=== PATIENT | male | born 1945 | race Caucasian/White ===

== ENCOUNTER 2024-03-03 16:17 | Inpatient (IN) | payer MEDICARE, OTHER, SELFPAY ==
[2024-03-03] VITALS (7 sets, daily range): BP systolic 103–134; BP diastolic 65–78; BMI 27.2; BMI 26.4
--- NOTE | 2024-03-03 11:17 | ED.GENMED ---
History of Present Illness
<Bette Ku PA-C - Last Filed: 03/03/24 18:26>
General
Chief Complaint: Breathing Problem
Source: patient
Exam Limitations: none
Time Seen by Provider: 03/03/24 11:02
Nursing documentation reviewed up to this point in time: agreed with
History of Present Illness
History of Present Illness:
Patient is 71-year-old male with history atrial fibrillation on Xarelto, diabetes presenting to the emergency department from urgent care for evaluation of shortness of breath and cough. Patient states that about 3 days ago he started to have a
productive cough with blood-tinged sputum. Patient reports associated shortness of breath and lower extremity swelling. In addition�patient states that he feels generally weak over the past few days patient denies any chest pain, fevers, chills,
abdominal pain. Patient denies any hematuria, melena, hematochezia.
Patient was seen in urgent care today where he had a chest x-ray which showed abnormal finding and was referred to the emergency department for further imaging and lab studies.
Patient denies any recent travel or recent surgery. Patient takes Xarelto.
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
Past History
<Bette Ku PA-C - Last Filed: 03/03/24 18:26>
Past History
ED Past Medical History: Arrthythmia, NIDDM, Psychiatric, Other (BPH s/P TURP, hypospadias, inguinal hernia repair and umbilical hernia repair cholecystectomy, septoplasty, tonsillectomy, paroxysmal atrial fib) and Other (sleep apnea)
ED Past Surgical History: Other (aug 05 hernia repair, november 03 umbilical hernia, october 31 choley, 89 septoplasty ear surgery as a 7yr old, TONSILS AGE 22)
Social History
Tobacco: Non-smoker
Alcohol: None
Drug: None
Personal: Single
Living: other
Family History
Family History: Other (Father with prostate cancer)
Review of Systems
<Bette Ku PA-C - Last Filed: 03/03/24 18:26>
Review of Systems
Allergies reviewed?: Yes
All Other Systems: ROS reviewed and negative except as documented in HPI and ROS
Phy Exam
<Bette Ku PA-C - Last Filed: 03/03/24 18:26>
Physical Exam
Physical Exam:
Vitals: Patient's vital signs are stable. Afebrile
General: Patient is well appearing, no acute distress. Nontoxic-appearing
Skin: Warm and dry, no rashes or lesions
Head: Normocephalic, atraumatic
Eyes: Sclera nonicteric. EOMs intact. No nystagmus.
Throat: Protecting airway
Neck: Normal ROM, no cervical spine tenderness, no meningismus
Cardiac: Regular rate and rhythm, no murmurs.
Pulm: Bibasilar crackles. No evidence of respiratory stress. Oxygen saturation 96 on room air.
Abdomen: Abdomen soft. No abdominal tenderness.
Extremities: 2+ pitting edema bilateral lower extremities. Palpable DP pulses bilaterally.
Neuro: AAOx3. CN II-XII intact. No focal neurologic deficits.
Psychiatric: Normal affect.
Scores
<Bette Ku PA-C - Last Filed: 03/03/24 18:26>
Heart Failure Risk
Heart Failure Risk Score: Yes
History of Stroke or TIA: No
History of intubation for respiratory distress: No
Heart rate on ED arrival >/= 110: No
SaO2 <90% on arrival on room air: No
HR >/=110 during 3min walk test (or too ill to perform test): No
ECG has acute ischemic changes: No
Urea >/=12mmol/L (BUN 33.6mg/dL): No
Serum CO2>/=35mmol/L: No
Troponin I or T elevated to RI Level (0.4mg/dL): No
NT-proBNP >/=5,000ng/L (5,000pg/ml): Yes
HF Risk Score: 1
Admission Status: MEDIUM RISK 5.1% Consider observation or discharge to home with homecare & f/u visit to PCP/[facility] Supervisor, or SNF for treatment
<Angélica Joaquin DO - Last Filed: 03/04/24 09:08>
Heart Failure Risk
HF Risk Score: 1
Admission Status: MEDIUM RISK 5.1% Consider observation or discharge to home with homecare & f/u visit to PCP/[facility] Supervisor, or SNF for treatment
Course
<Bette Ku PA-C - Last Filed: 03/03/24 18:26>
Orders/Labs/Results
Orders:
Orders
03/03/24 Breakfast
2200 calorie (18 carb) Diabetic
At Your Request: Limited Participation
Diabetic Diet: Sodium, 2 Gram
03/03/24 11:17
Electrocardiogram (*1) Urgent
Reason for Study: Shortness of Breath
EKG- Treatment ONCE
03/03/24 11:50
Complete Blood Count/With Diff Urgent
Comprehensive Metabolic Panel Urgent
NT-proBNP Urgent
Troponin I Urgent
03/03/24 11:54
CT Chest Pe Study Urgent
Comment:
Reason For Exam: SOB, hemoptysis
03/03/24 13:27
Furosemide [Lasix] 40 mg IV NOW STA
03/03/24 15:42
Admit/Transfer Patient As Directed
Co-Sign Provider:
Level of Care: Inpatient admission
Assign to:: Telemetry
Physician / Group: Hospitalist
Diagnosis: Heart failure
Reason for Telemetry: Subacute Heart Failure
Date to Stop Telemetry: 03/05/24
Time to Stop Telemetry: 11:00
Reason for Hospitalization: Heart failure, elevated troponin, abnormal ECG
Expected length of stay greater than two midnights?: Yes
ELOS- Estimated Length of Stay in days: 5
I certify the patient meets the requirements for IP care: Yes
03/03/24 16:00
Code Status As Directed
Resuscitation Status: Full Code
03/03/24 17:15
Echo 2D MMode Color/Doppler Routine
Reason for Study: heart failure
CARDIOLOGY CONSULT Routine
Consulting Provider: Joshua Phoenix
Was physician already notified: Yes
Reason for consult: Heart failure and elevated troponin
HF DIETARY CONSULT Routine
HF EDUCATOR CONSULT Routine
Comment:
Activity As Directed
Activity Level: With Assistance
Intake/ Output As Directed
Frequency: Per unit guidelines
Patient Education As Directed
Type: CHF folder
Comment: give on admission. Document in Interdisciplinary Education record
Pneumatic Compression Sleeves As Directed
Type: Knee high
Sleep Apnea Assessment by RN As Directed
Comment:
Physician Instructions:
Vital Signs As Directed
Frequency: Other
Additional Instructions:: Q12 or per unit guidelines if more frequent.
Weight As Directed
Frequency: Daily
Type of Scale: Standing Scale
Comment: Daily morning weight. If unable to stand, use balanced bed scale.
Weight As Directed
Frequency: Once
Type of Scale: Standing Scale
Comment: Upon Admission. If unable to stand, use balanced bed scale.
Pulse Ox/cont/shift [RESP] Routine
Quantity: 1
Special Instructions: Daily pulse oximetry at rest. If greater than 92% at rest also obtain pulse oximetry
while ambulating as tolerated.
Pt Eval And Treat Routine
Treatment: eval gait
Activity Level: With Assistance
US Peripheral Arterial [US Periph Art LOWER Ext w AZIZA] Routine
Comment:
Reason For Exam: cold swollen legs
DX Deep Vein Thrombosis Video Routine
03/03/24 18:34
Calcitonin [S] Routine
Procalcitonin Routine
PCT Algorithmm Indication: Respiratory
Troponin I Q6H
Comment: at admission & every 6 hours x 2 (3 total), ECG to be done with each level
03/03/24 22:00
Finasteride [Proscar] 5 mg PO HS
Furosemide [Lasix] 40 mg IV BID AT 0800,1600
Methenamine Hippurate [Hiprex] 1 gram PO HS
Rivaroxaban [Xarelto] 20 mg PO HS
03/03/24 23:30
Troponin I Q6H
Comment: at admission & every 6 hours x 2 (3 total), ECG to be done with each level
03/04/24 05:19
Basic Metabolic Panel IN AM
Cardiovascular Evaluation IN AM
Complete Blood Count/No Diff IN AM
Troponin I Q6H
Comment: at admission & every 6 hours x 2 (3 total), ECG to be done with each level
03/05/24 06:00
Basic Metabolic Panel IN AM
03/05/24 11:00
DC Protocol for Telemetry ONCE
03/06/24 06:00
Basic Metabolic Panel IN AM
Abnormal Lab Results
03/03/24
11:50
RBC 4.16 L 10^6/uL
(4.70-6.10)
Hct 38.0 L %
(39.0-52.0)
MCH 31.3 H pg
(27.0-31.0)
RDW 15.0 H %
(11.5-14.5)
Plt Count 124 L 10^3/uL
(130-400)
MPV 12.6 H fL
(7.4-10.4)
Abs Immat Gran (auto) 0.1 H 10^3/uL
(0-0.05)
Absolute Neuts (auto) 7.4 H 10^3/uL
(1.4-6.5)
Absolute Lymphs (auto) 0.9 L 10^3/uL
(1.2-3.4)
Absolute Monos (auto) 1.4 H 10^3/uL
(0.1-0.6)
Immature Gran % 0.6 H %
(0-0.5)
Neutrophils % 75.3 H %
(42.2-75.2)
Lymphocytes % 9.5 L %
(20.5-51.1)
Monocytes % 14.0 H %
(1.7-9.3)
Glucose 122 H mg/dl
(70-99)
Total Bilirubin 2.5 H mg/dl
(0.2-1.3)
Troponin I 0.041 H* ng/ml
03/03/24 11:50
03/03/24 11:50
Vital Signs
Initial and Last Documented VS:
Initial Vital Signs
Temp Pulse Resp BP Pulse Ox
98.4 F 84 18 131/72 96
03/03/24 10:53 03/03/24 10:53 03/03/24 10:53 03/03/24 10:53 03/03/24 10:53
Last Documented Vital Signs
Temp Pulse Resp BP Pulse Ox
98 F 71 16 113/57 96
03/04/24 07:00 03/04/24 07:34 03/04/24 07:00 03/04/24 07:34 03/04/24 07:00
<Angélica Joaqiun DO - Last Filed: 03/04/24 09:08>
Orders/Labs/Results
Orders:
Orders
03/03/24 Breakfast
2200 calorie (18 carb) Diabetic
At Your Request: Limited Participation
Diabetic Diet: Sodium, 2 Gram
07/06/24 11:17
Electrocardiogram (*1) Urgent
Reason for Study: Shortness of Breath
EKG- Treatment ONCE
03/03/24 11:50
Complete Blood Count/With Diff Urgent
Comprehensive Metabolic Panel Urgent
NT-proBNP Urgent
Troponin I Urgent
03/03/24 11:54
CT Chest Pe Study Urgent
Comment:
Reason For Exam: SOB, hemoptysis
03/03/24 13:27
Furosemide [Lasix] 40 mg IV NOW STA
03/03/24 15:42
Admit/Transfer Patient As Directed
Co-Sign Provider:
Level of Care: Inpatient admission
Assign to:: Telemetry
Physician / Group: Hospitalist
Diagnosis: Heart failure
Reason for Telemetry: Subacute Heart Failure
Date to Stop Telemetry: 03/05/24
Time to Stop Telemetry: 11:00
Reason for Hospitalization: Heart failure, elevated troponin, abnormal ECG
Expected length of stay greater than two midnights?: Yes
ELOS- Estimated Length of Stay in days: 5
I certify the patient meets the requirements for IP care: Yes
03/03/24 16:00
Code Status As Directed
Resuscitation Status: Full Code
03/03/24 17:15
Echo 2D MMode Color/Doppler Routine
Reason for Study: heart failure
CARDIOLOGY CONSULT Routine
Consulting Provider: Joshua Phoenix
Was physician already notified: Yes
Reason for consult: Heart failure and elevated troponin
HF DIETARY CONSULT Routine
HF EDUCATOR CONSULT Routine
Comment:
Activity As Directed
Activity Level: With Assistance
Intake/ Output As Directed
Frequency: Per unit guidelines
Patient Education As Directed
Type: CHF folder
Comment: give on admission. Document in Interdisciplinary Education record
Pneumatic Compression Sleeves As Directed
Type: Knee high
Sleep Apnea Assessment by RN As Directed
Comment:
Physician Instructions:
Vital Signs As Directed
Frequency: Other
Additional Instructions:: Q12 or per unit guidelines if more frequent.
Weight As Directed
Frequency: Daily
Type of Scale: Standing Scale
Comment: Daily morning weight. If unable to stand, use balanced bed scale.
Weight As Directed
Frequency: Once
Type of Scale: Standing Scale
Comment: Upon Admission. If unable to stand, use balanced bed scale.
Pulse Ox/cont/shift [RESP] Routine
Quantity: 1
Special Instructions: Daily pulse oximetry at rest. If greater than 92% at rest also obtain pulse oximetry
while ambulating as tolerated.
Pt Eval And Treat Routine
Treatment: eval gait
Activity Level: With Assistance
US Peripheral Arterial [US Periph Art LOWER Ext w AZIZA] Routine
Comment:
Reason For Exam: cold swollen legs
DX Deep Vein Thrombosis Video Routine
03/03/24 18:34
Calcitonin [S] Routine
Procalcitonin Routine
PCT Algorithmm Indication: Respiratory
Troponin I Q6H
Comment: at admission & every 6 hours x 2 (3 total), ECG to be done with each level
03/03/24 22:00
Finasteride [Proscar] 5 mg PO HS
Furosemide [Lasix] 40 mg IV BID AT 0800,1600
Methenamine Hippurate [Hiprex] 1 gram PO HS
Rivaroxaban [Xarelto] 20 mg PO HS
03/03/24 23:30
Troponin I Q6H
Comment: at admission & every 6 hours x 2 (3 total), ECG to be done with each level
03/04/24 05:19
Basic Metabolic Panel IN AM
Cardiovascular Evaluation IN AM
Complete Blood Count/No Diff IN AM
Troponin I Q6H
Comment: at admission & every 6 hours x 2 (3 total), ECG to be done with each level
03/05/24 06:00
Basic Metabolic Panel IN AM
03/05/24 11:00
DC Protocol for Telemetry ONCE
03/06/24 06:00
Basic Metabolic Panel IN AM
Abnormal Lab Results
03/03/24
11:50
RBC 4.16 L 10^6/uL
(4.70-6.10)
Hct 38.0 L %
(39.0-52.0)
MCH 31.3 H pg
(27.0-31.0)
RDW 15.0 H %
(11.5-14.5)
Plt Count 124 L 10^3/uL
(130-400)
MPV 12.6 H fL
(7.4-10.4)
Abs Immat Gran (auto) 0.1 H 10^3/uL
(0-0.05)
Absolute Neuts (auto) 7.4 H 10^3/uL
(1.4-6.5)
Absolute Lymphs (auto) 0.9 L 10^3/uL
(1.2-3.4)
Absolute Monos (auto) 1.4 H 10^3/uL
(0.1-0.6)
Immature Gran % 0.6 H %
(0-0.5)
Neutrophils % 75.3 H %
(42.2-75.2)
Lymphocytes % 9.5 L %
(20.5-51.1)
Monocytes % 14.0 H %
(1.7-9.3)
Glucose 122 H mg/dl
(70-99)
Total Bilirubin 2.5 H mg/dl
(0.2-1.3)
Troponin I 0.041 H* ng/ml
03/03/24 11:50
03/03/24 11:50
Vital Signs
Initial and Last Documented VS:
Initial Vital Signs
Temp Pulse Resp BP Pulse Ox
98.4 F 84 18 131/72 96
03/03/24 10:53 03/03/24 10:53 03/03/24 10:53 03/03/24 10:53 03/03/24 10:53
Last Documented Vital Signs
Temp Pulse Resp BP Pulse Ox
98 F 71 16 113/57 96
03/04/24 07:00 03/04/24 07:34 03/04/24 07:00 03/04/24 07:34 03/04/24 07:00
<Bette Ku PA-C - Last Filed: 03/03/24 18:26>
MDM/Problems Addressed
Differential Diagnosis Includes:
Not limited to: CHF, venous stasis, bronchitis, atrial fibrillation, pneumonia, PE, ACS
MDM/Problems Addressed:
Patient is a 79-year-old male with history atrial fibrillation on Xarelto presenting from urgent care for 3 days of dyspnea on exertion, cough with blood-tinged sputum, and lower extremity edema. Follows with Dr. Parekh as cardiology. Chest x-ray
performed at urgent care shows signs of pulmonary edema. No known history of heart failure. Patient's vital signs are stable on arrival, he is afebrile and saturating 96% oxygen on room air. Physical exam as above. Patient is nontoxic, in no
apparent distress. Patient is in atrial fibrillation with a controlled rate. Patient is anticoagulated on Xarelto. Lung exam shows bibasilar crackles. Patient has 2+ pitting edema bilateral lower extremities with palpable pulses bilaterally.
Most suspicious of new onset acute heart failure. Given history of blood-tinged sputum and abnormal chest x-ray�will check CTA chest to rule out pulmonary embolism/other acute abnormalities. Basic labs were checked which shows stable hemoglobin,
no other clinically significant abnormalities on chemistry panel. Troponin is mildly elevated to 0.041 and proBNP elevated to 9220. Again�high suspicion for CHF. Will plan for likely admission for diuresis. CTA chest pending.
CTA chest reviewed. Reports shows no evidence of pulmonary embolism although bilateral small pleural effusions and potential opacities suggesting questionable pneumonia. Patient has no infectious symptoms, is afebrile with no leukocytosis. Low
suspicion for pneumonia at this time and symptoms likely related to acute CHF. Will hold off on antibiotics for now. Will give 40 mg IV Lasix. Patient will be admitted to hospitalist for new onset CHF and diuresis. Likely will require echo
during this admission and cardiology consult. Patient accepted to hospitalist service. Discussed with patient.
Chronic conditions affecting care:
Atrial fibrillation on Xarelto
Acute Exacerbation and/or Progression of Chronic Illness:
Acute CHF exacerbation
<Bette Ku PA-C - Last Filed: 03/03/24 18:26>
*Radiology
Radiology exam reviewed: radiology read reviewed
*Pulse Oximetry
Patient hypoxic: no
*EKG
Interpreted by ED Provider?: Yes
EKG Intrepretation Date: 03/03/24
Interpretation: abnormal
Comparison EKG: changes noted
Heart Rate: 64
Rate: normal
Rhythm: a-fib
Ischemia: non-specific ST changes
*Credit Report Checker Interpretation
Rate: normal
Interpretation: abnormal
Heart Rate: 68
Rhythm: a-fib
*Critical Care Note
Total Time (30-74mins, 75-104mins- exclusive of procedures): Not Applicable
Data Reviewed
Review of Other/Old Records Reveals: Records (Urgent care report) and Radiology Studies (Chest x-ray performed outpatient today)
Source: previous radiology exam
<Bette Ku PA-C - Last Filed: 03/03/24 18:26>
Patient Management
Discussion with other providers: Hospitalist
Escalation/DeEscalation of care consider admission/obs:
Admission for diuresis, cardiology consult.
ED Attending Note
<Bette Ku PA-C - Last Filed: 03/03/24 18:26>
-
Portions of this chart may have been created with voice recognition software.� Occasional wrong word or��sound alike� substitutions may have occurred due to the inherent limitations of voice recognition software.
<Angélica Joaquin DO - Last Filed: 03/04/24 09:08>
ED Attending Note
Patient seen and examined by attending physician: Yes
I performed the substantive portion of visit, reviewed & personally made and approve the management plan that is documented in note by myself or TAD.: Yes
I performed a history and physical exam of patient and discussed management with resident, I reviewed resident's note and agree with documented findings and plan of care.: Yes
ED Attending Note:
Patient seen and examined at bedside, 79-year-old male with history of atrial fibrillation on Xarelto presenting to the emergency department for 3 days of cough and difficulty breathing. Also notes lower extremity edema, which is acute on chronic.
He went to urgent care prior to arrival, notes that he is also having some blood-tinged mucus production. Subsequently sent to the emergency department. Denies any known history of CHF. He had chest x-ray at urgent care which showed some
pulmonary edema. Vital signs on arrival within normal limits.
On exam, patient in no acute respiratory distress. However, on pulmonary exam, crackles at bilateral bases. Patient also with pitting edema to lower extremities. Chest x-ray reviewed, pulmonary edema. Ultimately suspect new onset CHF. Lower
suspicion for PE given anticoagulation status, however given production of blood-tinged mucus, will obtain CT chest for rule out additional pathology. Patient had EKG completed, A-fib with right bundle branch block, relatively unchanged from prior.
Patient does have slight bump in troponin, however denies any chest pain. Low suspicion for ACS. Plan for admission for diuresis, echo, cardiac consultation.
Discharge Plan
Departure
Patient Disposition: Admit
Date of Disposition: 03/03/24
Time of Disposition: 13:28
Presentation/result/management discussed w/ accepting MD/DO: Hospitalist
Discharge Problem:
Acute CHF (congestive heart failure)
Interventions
Interventions:
*Risk Screen - Suicide Last Done: 03/03/24 11:35
*General Assessment Last Done: 03/03/24 11:35
*Neglect/Abuse Screening Last Done: 03/03/24 11:35
ED- Fall Risk Assessment Last Done: 03/03/24 11:36
*ED COVID-19 Vaccine History Last Done: 03/03/24 11:35
*Nursing Disposition Last Done: 03/03/24 18:01
ED- Cardiac Assessment Last Done: 03/03/24 11:38
ED- Pulmonary Assessment Last Done: 03/03/24 11:36
Discharge Date and Time
Discharge Date/Time: 03/03/24 18:01
[2024-03-03 12:19] LABS: % Basophils 0.4 % (0-2); % Eosinophils 0.2 % (0-6); % Immature Granulocytes 0.6 % (0-0.5); % Lymphocytes 9.5 % (20.5-51.1); % Neutrophils 75.3 % (42.2-75.2); Absolute Immature Granulocytes 0.1 10^3/uL (0-0.05); Absolute Lymphocytes 0.9 10^3/uL (1.2-3.4); Absolute Monocytes 1.4 10^3/uL (0.1-0.6); Absolute Neutrophils 7.4 10^3/uL (1.4-6.5); Mean Corp Hgb Conc. 34.2 g/dL (33.0-37.0); Mean Corpuscular Hgb 31.3 pg (27.0-31.0); Mean Corpuscular Volume 91.3 fL (80.0-94.0); Mean Platelet Volume 12.6 fL (7.4-10.4); Nucleated Red Blood Cells % 0 % (-); Platelet Count 124 10^3/uL (130-400); Red Blood Cell Count 4.16 10^6/uL (4.70-6.10); White Blood Cell Count 9.8 10^3/uL (4.8-10.8)
[2024-03-03 12:20] LABS: ALT (SGPT) 16 U/L (0-50); AST (SGOT) 23 U/L (17-59); Alkaline Phosphatase 73 U/L (38-126); Blood Urea Nitrogen 16 mg/dl (9-20); Calcium 9.1 mg/dl (8.4-10.2); Carbon Dioxide 22 mmol/L (22-30); Chloride 105 mmol/L (98-107); Estimated Creatinine Clearance 88 ml/min; Glucose 122 mg/dl (70-99); Sodium 136 mmol/L (135-145); Total Bilirubin 2.5 mg/dl (0.2-1.3); Total Protein 6.4 g/dl (6.3-8.2); eGFR > 60.00
[2024-03-03 12:29] LABS: NT-proBNP 9220 pg/ml; Troponin I 0.041 ng/ml
[2024-03-03] MEDS: LASIX 40 MG IV ×2 (14:23→22:43)
--- NOTE | 2024-03-03 15:13 | HPS.HSE ---
Family Physician
-
Family Physician: Tahir Gallagher
Chief Complaint
-
Coughing blood
History of Present Illness
71-year-old man with history of atrial fibrillation (on Xarelto), diabetes (not on insulin) comes in with shortness of breath and cough. 3 days ago he started to have a productive cough with blood-tinged sputum, associated shortness of breath and
lower extremity swelling. In addition he feels generally weak over the past few days. He denies any chest pain, fevers, chills, abdominal pain, hematuria, melena, hematochezia. He was seen in urgent care today. He had a chest x-ray which showed
abnormal findings. No h/o recent travel or recent surgery. Patient takes Xarelto. 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 At the time of my exam he was upset because he was incontinent of urine. He could not remember his
medications.
Medical History
Past Medical History
Past Medical History: Reports Other
Additional Past Medical History:
Arrthythmia, paroxysmal afib
NIDDM,
BPH s/P TURP,
hypospadias,
inguinal hernia repair
umbilical hernia repair
cholecystectomy,
septoplasty,
tonsillectomy,
sleep apnea
Glaucoma
History of CVA (cerebrovascular accident)
Right bundle branch block
Lymphedema
Chronic UTI
Past Surgical History: Reports Other
Additional Past Surgical History:
See above
Social History
Tobacco: Non-smoker
Alcohol: None
Drug: None
Personal: Partner
Living: With Family
Family History
Family History: Not pertinent
Allergies / Home Medications
Allergies reflects when Allergies were last updated in [facility].
Home Medications with original date entered in [facility]
Allergy/Medication List:
Allergies
Allergy/AdvReac Type Severity Reaction Status Date / Time
Penicillins Allergy Swelling Verified 03/03/24 10:54
TREES AND POLLEN Allergy SNEEZING Uncoded 03/03/24 10:54
Home Medications
metformin 500 mg tablet 500 mg PO HS Hyperglycemia 07/08/21
finasteride 5 mg tablet 5 mg PO HS 03/03/24
methenamine hippurate 1 gram tablet 1 g PO HS 03/03/24
rivaroxaban 20 mg tablet (Xarelto) 20 mg PO HS 03/03/24
Review of Systems
-
History Source: Patient
A 12 point ROS was completed and negative except as noted: Yes
Physical Exam
Vital Signs
Vital Signs
Temp Pulse Resp BP Pulse Ox
98.4 F 70 21 134/74 93
03/03/24 10:53 03/03/24 11:49 03/03/24 11:49 03/03/24 14:23 03/03/24 11:49
Physical Exam
General: Well Developed, Well Nourished and Appears in Distress
HEENT: NormoCephalic, No Ptosis, Nose Appears Normal and Ears Appear Normal
Respiratory: Clear
Cardiac: S1/S2, Irregular Rhythm and Peripheral Edema
GI: Soft, Non Tender and Non Distended
Musculoskeletal: No Clubbing, Edema, Left Lower Extremity and Edema, Right Lower Extremity
Skin: Warm and Dry
Neuro: Awake, Alert and Oriented
Psych: Agitated
Laboratory Results
-
03/03/24 11:50
03/03/24 11:50
Laboratory Results
Total Bilirubin 2.5 mg/dl (0.2-1.3) H 03/03/24 11:50
AST 23 U/L (17-59) 03/03/24 11:50
ALT 16 U/L (0-50) 03/03/24 11:50
Alkaline Phosphatase 73 U/L (38-126) 03/03/24 11:50
Troponin I 0.041 ng/ml H* 03/03/24 11:50
Data Reviewed
-
Lab Data: Labs Reviewed by me
Impression/Plan
-
IMPRESSION:
79 man with increased peripheral edema, new shortness of breath. Significant findings:
CT:
1. No CTA evidence for an acute pulmonary thromboembolism.
2. Moderate right and small left pleural effusions.
3. Left lower lobe peribronchial thickening and airspace opacities most suspicious for pneumonia. Imaging follow-up to resolution is recommended
4. Cardiomegaly.
Labs:
Platelets 124 (had been 138)
Troponin 0.041 (ULN 0.034)
BNP
ECG: inferior infarct
Last echo in 2021:
Mildly dilated left ventricular size. Severely reduced systolic function. LV
ejection fraction is 35-40% by visual assessment. Global hypokinesis. Normal
left ventricular wall thickness.
Enlarged left atrium.
Mild mitral regurgitation
Mild tricuspid regurgitation with mild pulmonary hypertension.
PLAN:
1. Pleural effusions - probable acute CHF, complicating chronic CHF as described above, BNP
Diurese with lasix (keep an eye on BP)
GILBERTO - cycle troponins (first is 0.041)
Telemetry
R/O pneumonia with pro-nick
Cardiology consult ([facility])
2. Abnormal ECG with changes. No chest pain. ECG today:
ATRIAL FIBRILLATION
LEFT AXIS DEVIATION
RIGHT BUNDLE BRANCH BLOCK
INFERIOR INFARCT , AGE UNDETERMINED
WHEN COMPARED WITH ECG OF 11-APR-2021 07:05,
INFERIOR INFARCT IS NOW PRESENT
T WAVE INVERSION NOW EVIDENT IN ANTERIOR LEADS
Cycle troponins
Telemetry
Cardiology consult ([facility])
3. Low platelets, on xarelto, with blood tinged sputum. H/H 13.0/38.0 (this is near baseline)
Check H/H daily
Hold Xarelto if sputum redness increases or H/H drops
Avoid heparin
4. Urinary incontinence s/p tURP
Nursing care
Consider condom cath while in active diuresis
Continue finasteride
5. Severe venous stasis on legs bilaterally
Elevate legs above heart as tolerated
Check bilateral pedal pulses
6. Diabetes
Supplemental insulin as needed per protocol
7. Chronic UTIs - continue Methenamine
Code: Full
VCD for DVTp
--- NOTE | 2024-03-03 17:02 | CON.CAR ---
Consultation
Consultation Request
Date/Time Consultation Requested: 03/03/2024 at 1600
Date/Time Consultation Performed: 03/03/2024 at 1700
Requesting Provider: Dr. Lambert Case
Performing Provider: Joshua Phoenix MD
Reason for Consultation: CHF
Medical History
-
Chief Complaint: CHF
History of Present Illness:
Patient with permanent atrial fibrillation and nonischemic cardiomyopathy with moderate mitral regurgitation, very reluctant to accept guideline directed medical therapy but does take Xarelto to prevent additional strokes, now with 3 days of
shortness of breath with orthopnea and PND. He has had hemoptysis and presented for evaluation, had elevated proBNP and bilateral pleural effusions with evidence of heart failure by CT scan with pulmonary embolism protocol. Has a history of
hematuria remotely but not recently. Last seen in our office in August of this year. He has longstanding edema, now worse, with lower extremity wound appointment scheduled with Dr. Marshall to discuss Watchman
Past Medical History
Past Medical History: Arrhythmias (Persistent/permanent atrial fibrillation, right bundle branch block, n), CHF (Nonischemic cardiomyopathy by catheterization in 2016, most recent EF 35-40%), CVA (Right paramedian and posterior frontal stroke 2020,
old left frontal stroke, possible parietal stroke, possible cerebellar stroke), HTN, Hypercholesterolemia, NIDDM, Valvular Disease (Moderate mitral regurgitation) and Other (Noncompliance with medications, history of hematuria on Xarelto, renal
calculi, obstructive sleep apnea, lymphedema)
Past Surgical History: Cholecystectomy, Urological (TURP) and Other (Tonsillectomy, ear surgery, herniorrhaphy, septoplasty, cataracts, laser renal lithotripsy and stents, hypospadias)
Social History
Tobacco: Non-Smoker
Alcohol: None
Personal: Partner
Living: With Family
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
Family History
Family History: Reviewed & Not Pertinent
Allergies / Home Medications
Allergy/AdvReac Type Severity Reaction Status Date / Time
Penicillins Allergy Swelling Verified 03/03/24 10:54
TREES AND POLLEN Allergy SNEEZING Uncoded 03/03/24 10:54
�Medication �Instructions �Recorded �Confirmed �Type
metformin 500 mg tablet 500 mg PO HS Hyperglycemia 07/08/21 03/03/24 History
finasteride 5 mg tablet 5 mg PO HS 03/03/24 03/03/24 History
methenamine hippurate 1 gram tablet 1 g PO HS 03/03/24 03/03/24 History
rivaroxaban 20 mg tablet (Xarelto) 20 mg PO HS 03/03/24 03/03/24 History
Review of Systems
-
All other systems: Negative unless noted
Physical Exam
Vital Signs
Temp Pulse Resp BP Pulse Ox
36.9 C 87 30 134/74 98
03/03/24 10:53 03/03/24 14:30 03/03/24 14:30 03/03/24 14:23 03/03/24 14:30
Lab Results
03/03/24 11:50
03/03/24 11:50
Troponin I 0.041 ng/ml H* 03/03/24 11:50
Wfm-D-Qezybfixgtk Pept 9220 pg/ml 03/03/24 11:50
Physical Exam
General: No Apparent Distress (Mildly tachypneic, slender)
HEENT: Normocephalic
Respiratory: Other (Diminished breath sounds right greater than left, with rales)
Cardiac: Irregular Rhythm, Murmur (Relatively soft MR murmur) and JVD (Modestly elevated)
GI: Non Tender and Non Distended
Musculoskeletal: Edema (3+ edema with venous stasis changes, wound on lower left conde with Telfa pad)
Skin: Warm and Dry
Neuro: AO x 3
Psych: Calm
Impression / Plan
-
Impression:
Acute on chronic HFrEF
Permanent atrial fibrillation
Moderate mitral regurgitation
Right bundle branch block with left anterior fascicular block
History of stroke, likely cardioembolic
Hypertension
Hyperlipidemia
History of noncompliance
Type 2 diabetes
History of renal calculi/hematuria
Obstructive sleep apnea
Lymphedema
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
Echo 04/2023: Global hypokinesis, EF 35-40% with restrictive filling, normal RV, dilated left atrium (severe) normal right atrium, moderate mitral regurgitation, aortic sclerosis, mild tricuspid regurgitation, pulmonary artery systolic pressure 45-48
mmHg, sinus of Valsalva is 5.3 cm
Cardiac catheterization performed elsewhere 2017: Reportedly without obstructive CAD
Plan:
He presents with what is probably acute on chronic HFrEF with moderate mitral regurgitation and last known ejection fraction of 35 to 40%.
He is relatively bradycardic, so addition of carvedilol is problematic. In addition he has been reluctant to comply with GDMT. He now states that he wants to avoid hospitalization, so hopefully he will now accept GDMT. Will begin Entresto
today and hopefully add spironolactone and SGLT2 inhibitor prior to discharge. Will need to discuss further whether he is an SGLT2 candidate given urologic history.
Continue IV Lasix, continue Xarelto.
Will recheck echocardiogram.
At present, I am not sure that Watchman would be reimbursed given that he is tolerating Xarelto.
Data Reviewed
-
EKG: Tracing Personally Visualized and interpreted (Atrial fibrillation, relatively slow ventricular response, right bundle branch block with left anterior fascicular block, poor R wave progression possible inferior OR)
CT Scan: Image Personally Visualized and interpreted (03/03/2024 CTA negative for pulmonary embolism, moderate right and small left pleural effusion, possible left lower lobe peribronchial pneumonia, cardiomegaly)
Medical Tests (Nuc Med, Echo etc): Report Reviewed by me
Labs: Labs Reviewed by me (Hemoglobin 13.0, white count 9.8, platelets 124, BUN/creatinine 16 and 0.8, proBNP is 9220, initial opponent 0.041)
Old Records: Reviewed
[2024-03-03 19:07] LABS: Troponin I 0.042 ng/ml
[2024-03-03 19:15] LABS: Procalcitonin < 0.05 ng/ml (0.0-0.25)
[2024-03-03] MEDS: ENTRESTO 24 MG/26 MG 1 TAB PO (20:32)
[2024-03-03] MEDS: HIPREX 1 GRAM PO (22:39)
[2024-03-03] MEDS: XARELTO 20 MG PO (22:40)
[2024-03-03] MEDS: PROSCAR 5 MG PO (22:40)
[2024-03-03 22:50] LABS: Glucose - Point of Care 138 mg/dl (70-99)
[2024-03-04] VITALS (7 sets, daily range): BP systolic 95–115; BP diastolic 49–67; PULSE 68–77; BMI 25.6
[2024-03-04 00:02] LABS: Troponin I 0.051 ng/ml
[2024-03-04 05:31] LABS: Hematocrit 39.9 % (39.0-52.0); Hemoglobin 13.7 g/dL (13.0-18.0); Mean Corp Hgb Conc. 34.3 g/dL (33.0-37.0); Mean Corpuscular Hgb 31.1 pg (27.0-31.0); Mean Corpuscular Volume 90.5 fL (80.0-94.0); Mean Platelet Volume 12.5 fL (7.4-10.4); Platelet Count 140 10^3/uL (130-400); Red Blood Cell Count 4.41 10^6/uL (4.70-6.10); Red Cell Dist. Width 14.6 % (11.5-14.5); White Blood Cell Count 10.9 10^3/uL (4.8-10.8)
[2024-03-04 06:07] LABS: Troponin I 0.054 ng/ml
[2024-03-04 06:24] LABS: Blood Urea Nitrogen 15 mg/dl (9-20); Calcium 8.8 mg/dl (8.4-10.2); Carbon Dioxide 26 mmol/L (22-30); Chloride 101 mmol/L (98-107); Estimated Creatinine Clearance 101 ml/min; Glucose 118 mg/dl (70-99); HDL Cholesterol 42 mg/dl; LDL Cholesterol, Calculated 88 mg/dl; Potassium 3.5 mmol/L (3.5-5.1); Sodium 137 mmol/L (135-145); Total Cholesterol 140 mg/dl (50-199); Triglyceride 52 mg/dl (10-149); Very Low Density Lipoprotein 10 mg/dl (0-30); eGFR > 60.00
[2024-03-04] MEDS: LASIX 40 MG IV ×2 (07:34→16:33)
[2024-03-04] MEDS: ENTRESTO 24 MG/26 MG 1 TAB PO ×2 (07:34→19:48)
[2024-03-04 07:38] LABS: Glucose - Point of Care 114 mg/dl (70-99)
--- NOTE | 2024-03-04 08:23 | W.PN.HOSP.TC ---
Today's Communication/Plan
-
see bold
Assessment / Plan
Assessment / Plan
#Acute on chronic heart failure with reduced ejection fraction
Appreciate cardiology input, continue IV Lasix, started on Entresto
Hold spironolactone secondary to low blood pressure, potentially start tomorrow
Trend creatinine, trend daily weights
#Elevated troponin
Due to CHF
#Chronic lymphedema
Ordered Tubigrip's
#Mild leukocytosis
#Hemoptysis
Chest CT concerning for PNA - discussed w/ cards who feels like findings are due to CHF
Procalcitonin negative
Patient is afebrile, will monitor off of antibiotics
Hemoptysis is mild, continue to monitor
#Permanent atrial fibrillation
Continue Xarelto
#Moderate mitral regurgitation
#Right bundle branch block with left anterior fascicular block
#History of type 2 diabetes, now glucose intolerance
Resume home metformin, continue sliding scale insulin
#BPH
Continue finasteride
#History of stroke, likely cardioembolic
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
DVT prophylaxis�Xarelto
Full code
Total time spent to see the patient on the floor, examine the patient, review data and lab results, discuss treatment plan with patient, nursing staff around 50 minutes.
Physical Exam
General: No acute distress
HEENT: Normocephalic, Atraumatic, EOMI, MMM
Respiratory: Bibasilar crackles
Cardiac: Normal S1/S2, irregularly irregular
GI: Soft, Nontender, Nondistended, Normal Bowel Sounds
Extremities: No Clubbing, Cyanosis
Bilateral lower extremity edema noted with skin changes reflective of chronic venous stasis dermatitis
Neuro: Nonfocal/Grossly Intact
Psych: Calm, Cooperative
Derm: No Visible lesions
Anticipated Discharge: 24 - 48 hours
Subjective/Interval History
-
Date of Service: March 04, 2024
Patient reports his breathing and hemoptysis are improved. His lower extremity edema has also improved. No fever, no vomiting.
Objective Data
-
Labs:
Laboratory Results
03/04/24
05:19
WBC 10.9 H
Hgb 13.7
Hct 39.9
Plt Count 140
Sodium 137
Potassium 3.5
Chloride 101
Carbon Dioxide 26
BUN 15
Creatinine 0.7
Glucose 118 H
Calcium 8.8
Vital Signs:
Vital Signs
Temp Pulse Resp BP Pulse Ox
98 F 71 16 113/57 96
03/04/24 07:00 03/04/24 07:34 03/04/24 07:00 03/04/24 07:34 03/04/24 07:00
I&O
03/03/24 03/04/24 03/05/24
06:59 06:59 06:59
Intake Total 1050 / 1050
Balance 1050 / 1050
--- NOTE | 2024-03-04 08:26 | W.PN.CARDCBS ---
Today's Communication / Plan
-
Hold spironolactone, potentially start tomorrow
Continue IV Lasix, continue Entresto
No SGLT2 inhibitor given urologic issues
No beta-baljeet given bradycardia
Continue Xarelto
Impression / Plan
-
Impression:
Acute on chronic HFrEF
Permanent atrial fibrillation
Moderate mitral regurgitation
Right bundle branch block with left anterior fascicular block
History of stroke, likely cardioembolic
Hypertension
Hyperlipidemia
History of noncompliance
Type 2 diabetes
History of renal calculi/hematuria
Obstructive sleep apnea
Lymphedema
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
Echo 04/2023: Global hypokinesis, EF 35-40% with restrictive filling, normal RV, dilated left atrium (severe) normal right atrium, moderate mitral regurgitation, aortic sclerosis, mild tricuspid regurgitation, pulmonary artery systolic pressure 45-48
mmHg, sinus of Valsalva is 5.3 cm
Cardiac catheterization performed elsewhere 2017: Reportedly without obstructive CAD
Plan:
Volume status is improved but not yet euvolemic.
Blood pressure has been relatively low.
He is now on Entresto. Continue IV Lasix and convert to oral in 24 to 48 hours.
Given urologic issues he is a poor candidate for SGLT2 antagonists.
No beta-baljeet given relative bradycardia.
Continue Xarelto.
Hopefully can start spironolactone in 24 to 48 hours. Supplement potassium.
Unfortunately, he seemed more cooperative yesterday and seems less willing to comply with medications today, we will need to talk with his friend/business insurance agent. I stressed the importance of medication compliance in order to avoid hospitalization.
Patient for echocardiography in AM.
He thinks a Watchman would solve his problems and and does not understand CHF though I discussed this yesterday and he has no recollection. I told him given he does not have a strong contraindication to anticoagulation that it may not be feasible
to implant the device.
Progress Note - Mechanical Reliability Engineer
Subjective
Date of Service: March 04, 2024:
Patient without clear-cut hemoptysis. He says he has no breathing issues. His memory is poor and does not recall details of his symptoms, etc.
PMH/PSH/SH/FH: Reviewed
Allergies: Penicillin
Outpatient medications: Metformin 500 mg at bedtime, methenamine hippurate, rivaroxaban
Current meds: Proscar 5 mg a day, methenamine hippurate, rivaroxaban 20 mg at bedtime, furosemide 40 mg IV twice daily, insulin sliding scale, Entresto twice daily
ROS negative except as above
Weight is 90.4 kg, if accurate down 2.7 kg since yesterday, 5.6 kg since admission, pulse 50s to 70s afebrile, 113/57, sats 96% on room air, aeration of lungs is improved, JVD is okay, extremely soft apical murmur, still with lower extremity edema,
abdomen benign
Potassium is 3.5, BUN and creatinine are 15 and 0.7, hemoglobin is 13.7, troponin is 0.054 at peak
ECG today, atrial fibrillation, PVCs versus aberrant ventricular conduction, right bundle branch block, left anterior fascicular block, possible inferior MO with diffuse ST and T changes
Objective
Labs:
03/04/24 05:19
03/04/24 05:19
Labs
Hgb 13.7 g/dL (13.0-18.0) 03/04/24 05:19
Hct 39.9 % (39.0-52.0) 03/04/24 05:19
Plt Count 140 10^3/uL (130-400) 03/04/24 05:19
Sodium 137 mmol/L (135-145) 03/04/24 05:19
Potassium 3.5 mmol/L (3.5-5.1) 03/04/24 05:19
BUN 15 mg/dl (9-20) 03/04/24 05:19
Creatinine 0.7 mg/dL (0.7-1.3) 03/04/24 05:19
Glucose 118 mg/dl (70-99) H 03/04/24 05:19
Troponins
03/03/24 03/03/24 03/03/24
11:50 18:34 23:30
Troponin I 0.041 H* 0.042 H* 0.051 H*
03/04/24
05:19
Troponin I 0.054 H*
Vital Signs and I&O:
Vital Signs
Temp Pulse Resp BP Pulse Ox
36.6 C 71 16 113/57 96
03/04/24 07:00 03/04/24 07:34 03/04/24 07:00 03/04/24 07:34 03/04/24 07:00
Vital Signs
Temp Pulse Resp BP Pulse Ox
36.6 C 71 16 113/57 96
03/04/24 07:00 03/04/24 07:34 03/04/24 07:00 03/04/24 07:34 03/04/24 07:00
Intake & Output
03/02/24 03/03/24 03/04/24 03/05/24
07:59 07:59 07:59 07:59
Intake Total 1050 / 1050
Balance 1050 / 1050
Physical Exam
Physical Exam
See above
[2024-03-04] MEDS: KCL 40 MEQ PO ×2 (09:08→23:18)
[2024-03-04 09:33] LABS: Glycohemoglobin (HgbA1c) 6.2 % (4.0-5.6)
[2024-03-04 11:37] LABS: Glucose - Point of Care 133 mg/dl (70-99)
--- NOTE | 2024-03-04 16:15 | CM ---
Alert awake oriented patient who lives with his friend Nasim who lives in a 2 story home with 2 step to enter and 8 steps to bed and bathroom. He is independent in driving and in all activities of daily living.He was offered VN he declined need.He
said he will set up out pt PT by himself at ne.He said his address is [address] [place] [address].
Had Julián and [facility] VN hx / No SNF history
Pharmacy [facility]
PCP DR Gallagher
PLAN Home Declined VN
[2024-03-04 17:26] LABS: Glucose - Point of Care 137 mg/dl (70-99)
[2024-03-04 21:48] LABS: Glucose - Point of Care 190 mg/dl (70-99)
[2024-03-04] MEDS: XARELTO 20 MG PO (23:17)
[2024-03-04] MEDS: PROSCAR 5 MG PO (23:17)
[2024-03-04] MEDS: HIPREX 1 GRAM PO (23:18)
[2024-03-04] MEDS: GLUCOPHAGE 500 MG PO (23:18)
[2024-03-05 03:30] VITALS: BP 115/70
[2024-03-05 05:27] VITALS: BMI 25.5
[2024-03-05 06:20] LABS: Hematocrit 41.5 % (39.0-52.0); Hemoglobin 14.4 g/dL (13.0-18.0); Mean Corp Hgb Conc. 34.7 g/dL (33.0-37.0); Mean Corpuscular Volume 89.2 fL (80.0-94.0); Mean Platelet Volume 12.4 fL (7.4-10.4); Platelet Count 166 10^3/uL (130-400); Red Blood Cell Count 4.65 10^6/uL (4.70-6.10); Red Cell Dist. Width 14.6 % (11.5-14.5); White Blood Cell Count 11.1 10^3/uL (4.8-10.8)
[2024-03-05 06:36] LABS: Blood Urea Nitrogen 19 mg/dl (9-20); Calcium 8.9 mg/dl (8.4-10.2); Carbon Dioxide 28 mmol/L (22-30); Chloride 99 mmol/L (98-107); Estimated Creatinine Clearance 101 ml/min; Glucose 130 mg/dl (70-99); Magnesium 1.9 mg/dl (1.6-2.3); Potassium 3.8 mmol/L (3.5-5.1); Sodium 136 mmol/L (135-145); eGFR > 60.00
[2024-03-05 07:00] VITALS: BP 104/64
[2024-03-05 07:21] LABS: Glucose - Point of Care 129 mg/dl (70-99)
[2024-03-05] MEDS: KCL 10 MEQ PO ×2 (07:21→19:42)
[2024-03-05] MEDS: LASIX 40 MG IV ×2 (07:21→16:41)
[2024-03-05] MEDS: ENTRESTO 24 MG/26 MG 1 TAB PO ×2 (07:21→19:42)
[2024-03-05 07:50] VITALS: BMI 25.5
--- NOTE | 2024-03-05 09:27 | W.PN.CARDCBS ---
Today's Communication / Plan
-
Continue IV diuresis
Echo is pending
Outpatient evaluation for Watchman
Impression / Plan
-
.
Primary generation technician: Dr Parekh
Impression:
Acute on chronic HFrEF
Permanent atrial fibrillation
Moderate mitral regurgitation
Right bundle branch block with left anterior fascicular block
History of stroke, likely cardioembolic
Hypertension
Hyperlipidemia
History of noncompliance
Type 2 diabetes
History of renal calculi/hematuria
Obstructive sleep apnea
Lymphedema
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
Echo 04/2023: Global hypokinesis, EF 35-40% with restrictive filling, normal RV, dilated left atrium (severe) normal right atrium, moderate mitral regurgitation, aortic sclerosis, mild tricuspid regurgitation, pulmonary artery systolic pressure 45-48
mmHg, sinus of Valsalva is 5.3 cm
Cardiac catheterization performed elsewhere 2017: Reportedly without obstructive CAD
Plan:
Cont IV diuresis and likely change to oral lasix next 24 hrs.
Volume status continues to improve.
Blood pressure remains on the lower side. Would hold on aldactone at this time.
Entresto was added this admit. Would ask case management to assess affordability. He had been on ACEI and Coreg in the past but stopped them.
Holding off on resuming beta baljeet presently with HR on lower side.
Given urologic issues he is a poor candidate for SGLT2 antagonists.
Continue Xarelto for perm AFib. With CVA he has been recommended anticoagulation. He is in the process of being evaluated for Watchman given his recurrent hematuria after discussions with urology.
He has an appointment coming up with Dr. Marshall
Echo is pending March 05.
He was anxious during interview. Spoke with his partner Nasim via phone in the room and reviewed plan of care and need for compliance and follow-up with him.
Compliance with medications and follow-up and recommendations has been discussed.
Updated primary service.
Progress Note - Patient Care Technician Instructor
Subjective
Date of Service: March 05, 2024
Patient seen and examined. No chest pain. Breathing better. He is anxious. He cries during interview
Objective
Labs:
03/05/24 05:52
03/05/24 05:52
Labs
Hgb 14.4 g/dL (13.0-18.0) 03/05/24 05:52
Hct 41.5 % (39.0-52.0) 03/05/24 05:52
Plt Count 166 10^3/uL (130-400) 03/05/24 05:52
Sodium 136 mmol/L (135-145) 03/05/24 05:52
Potassium 3.8 mmol/L (3.5-5.1) 03/05/24 05:52
BUN 19 mg/dl (9-20) 03/05/24 05:52
Creatinine 0.7 mg/dL (0.7-1.3) 03/05/24 05:52
Glucose 130 mg/dl (70-99) H 03/05/24 05:52
Troponins
03/03/24 03/03/24 03/03/24
11:50 18:34 23:30
Troponin I 0.041 H* 0.042 H* 0.051 H*
03/04/24
05:19
Troponin I 0.054 H*
Vital Signs and I&O:
Vital Signs
Temp Pulse Resp BP Pulse Ox
97.6 F 77 17 104/64 94
03/05/24 07:00 03/05/24 07:21 03/05/24 07:00 03/05/24 07:21 03/05/24 07:00
Vital Signs
Temp Pulse Resp BP Pulse Ox
97.6 F 77 17 104/64 94
03/05/24 07:00 03/05/24 07:21 03/05/24 07:00 03/05/24 07:21 03/05/24 07:00
Intake & Output
03/03/24 03/04/24 03/05/24 03/06/24
06:59 06:59 06:59 06:59
Intake Total 1050 / 1050 1200 / 1200
Output Total 1800 / 1800
Balance 1050 / 1050 -600 / -600
Physical Exam
Physical Exam
General: No acute distress, AAOX3
Neck: Negative JVD
Heart: Irregularly irregular, Negative S3 positive S1/S2, Negative S4, No murmur
Lungs: CTA b/l, negative wheezes/rales/rhonchi
Abd: Positive BS, NT/ND, neg rebound/rigidity/guarding
Ext: Negative cyanosis/clubbing/edema
Neuro: nonfocal
[2024-03-05 12:13] LABS: Glucose - Point of Care 130 mg/dl (70-99)
--- NOTE | 2024-03-05 12:52 | W.PN.HOSP.TC ---
Today's Communication/Plan
-
see bold
Assessment / Plan
Assessment / Plan
Gen: NAD, Awake and alert, NCAT
Eyes: EOMI, PERRLA, no scleral icterus.
Neck: supple.
CV: irreg/irreg, +S1/S2, no m/r/g.
Resp: faint rales in the bases
Abd: +BS, soft, NT, ND
Skin: No rashes. 1+ B/L LE edema
Neuro: CN 2-12 intact, non-focal.
Psych: Normal mood and affect.
CTA chest:
1. No CTA evidence for an acute pulmonary thromboembolism.
2. Moderate right and small left pleural effusions.
3. Left lower lobe peribronchial thickening and airspace opacities most suspicious for pneumonia. Imaging follow-up to resolution is recommended
4. Cardiomegaly.
Acute on chronic heart failure with reduced ejection fraction:
-cont IV Lasix
-cont Entresto
-no aldactone at this time due to hypotension
-Elevated troponin is due to acute nonischemic myocardial injury
Hemoptysis:
-CTA chest above
-afebrile, procal < 0.05, unlikely findings on chest imaging related to bacterial pneumonia
-Hb normal
Other problems:
Chronic lymphedema: cont Tubigrip's
Mild leukocytosis
Permanent atrial fibrillation: continue Xarelto
Moderate mitral regurgitation
Right bundle branch block with left anterior fascicular block
DM2: cont Metformin/SSI/accuchecks
BPH: Continue finasteride
h/o CVA
h/o Cognitive impairment
FULL/Xarelto
Anticipated Discharge: Within 24 hours
Subjective/Interval History
-
Date of Service: March 05, 2024
Objective Data
-
Labs:
Laboratory Results
03/05/24
05:52
WBC 11.1 H
Hgb 14.4
Hct 41.5
Plt Count 166
Sodium 136
Potassium 3.8
Chloride 99
Carbon Dioxide 28
BUN 19
Creatinine 0.7
Glucose 130 H
Calcium 8.9
Vital Signs:
Vital Signs
Temp Pulse Resp BP Pulse Ox
97.6 F 77 17 104/64 94
03/05/24 07:00 03/05/24 07:21 03/05/24 07:00 03/05/24 07:21 03/05/24 07:00
I&O
03/04/24 03/05/24 03/06/24
06:59 06:59 06:59
Intake Total 1050 / 1050 1200 / 1200
Output Total 1800 / 1800
Balance 1050 / 1050 -600 / -600
--- NOTE | 2024-03-05 14:46 | CM ---
Patient seen at bedside. Patient states that he has a care in the parking lot and does not anticipate any further discharge needs. CM will continue to follow for discharge planning needs.
Plan; home with no needs anticipated at this time.
[2024-03-05 14:53] VITALS: BP 101/55
[2024-03-05 16:41] LABS: Glucose - Point of Care 176 mg/dl (70-99)
[2024-03-05] MEDS: GLUCOPHAGE 500 MG PO (21:08)
[2024-03-05] MEDS: XARELTO 20 MG PO (21:08)
[2024-03-05] MEDS: HIPREX 1 GRAM PO (21:09)
[2024-03-05] MEDS: PROSCAR 5 MG PO (21:09)
[2024-03-05 21:27] LABS: Glucose - Point of Care 209 mg/dl (70-99)
--- NOTE | 2024-03-05 22:10 | PTCARENOTE ---
Pt AAOx3, forgetful. C/o some hand cramps during his earlier meal which made it difficult to eat his meal independently, states that he believes he does not have this symptom at home d/t the increased amount of water he drinks at home. Pt states he
will not remember to tell the doctor about this symptom tomorrow. Pt does not c/o symptom currently.
[2024-03-05 23:46] VITALS: BP 107/63
[2024-03-06 02:11] LABS: Calcitonin <2.0 pg/mL (0.0-7.5)
[2024-03-06 06:00] VITALS: BMI 25.0
[2024-03-06 06:52] LABS: Blood Urea Nitrogen 17 mg/dl (9-20); Calcium 8.7 mg/dl (8.4-10.2); Carbon Dioxide 26 mmol/L (22-30); Chloride 99 mmol/L (98-107); Estimated Creatinine Clearance 118 ml/min; Glucose 126 mg/dl (70-99); Potassium 3.5 mmol/L (3.5-5.1); Sodium 134 mmol/L (135-145); eGFR > 60.00
[2024-03-06 07:00] VITALS: BP 92/52
[2024-03-06 07:19] LABS: Glucose - Point of Care 141 mg/dl (70-99)
[2024-03-06 07:50] VITALS: BMI 25.0
--- NOTE | 2024-03-06 08:25 | W.PN.CARDCBS ---
Today's Communication / Plan
-
Transition to oral lasix 40 mg daily.
His wt is down and similar to prior wt from late 2022.
Blood pressure remains on the lower side. Would not resume aldactone at this time.
Entresto was added this admit. Will ask case management to assess affordability. He had been on ACEI and Coreg in the past but stopped them on his own.
Holding off on resuming beta baljeet presently with HR and bp on lower side.
Continue Xarelto for perm AFib. With CVA he has been recommended anticoagulation. He is in the process of being evaluated for Watchman given his recurrent hematuria after discussions with urology.
Echo March 05., EF is slightly lower. He has declined PVI in the past and tx for afib which likely contributed to his CM. He has declined ICD in the past.
Stable from cardiac standpoint for d/c today.
Impression / Plan
-
.
Primary bread icer: Dr Parekh
Impression:
Acute on chronic HFrEF
Permanent atrial fibrillation
Moderate mitral regurgitation
Right bundle branch block with left anterior fascicular block
History of stroke, likely cardioembolic
Hypertension
Hyperlipidemia
History of noncompliance
Type 2 diabetes
History of renal calculi/hematuria
Obstructive sleep apnea
Lymphedema
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
Echo March 05 2024: Left ventricle is moderately dilated. Normal left ventricular wall thickness.
Severe global hypokinesis with possible apical akinesis. Left ventricular ejection fraction is 20-25% by Up's method of discs. Diastolic function indeterminate due to atrial fibrillation. Mild to moderate mitral regurgitation.
Severely dilated left atrium. Enlarged right ventricular size. Since echocardiogram 05/27/2023 which was reviewed, ejection fraction has decreased from 30-35% to 20-25%. Right ventricle may be dilated and hypokinetic.
Echo 04/2023: Global hypokinesis, EF 35-40% with restrictive filling, normal RV, dilated left atrium (severe) normal right atrium, moderate mitral regurgitation, aortic sclerosis, mild tricuspid regurgitation, pulmonary artery systolic pressure 45-48
mmHg, sinus of Valsalva is 5.3 cm
Cardiac catheterization performed elsewhere 2017: Reportedly without obstructive CAD
Plan:
Transition to oral lasix 40 mg daily.
His wt is down and similar to prior wt from late 2022.
Blood pressure remains on the lower side. Would not resume aldactone at this time.
Entresto was added this admit. Will ask case management to assess affordability. He had been on ACEI and Coreg in the past but stopped them on his own.
Holding off on resuming beta baljeet presently with HR and bp on lower side.
Given urologic issues he is a poor candidate for SGLT2 antagonists.
Continue Xarelto for perm AFib. With CVA he has been recommended anticoagulation. He is in the process of being evaluated for Watchman given his recurrent hematuria after discussions with urology.
He has an appointment coming up with Dr. Marshall
Echo March 05., EF is slightly lower. He has declined PVI in the past and tx for afib which likely contributed to his CM. He has declined ICD in the past.
Cont medical therapy of nonMI trop.
He was anxious during interview again today.
Spoke with his partner Nasim via phone at his request and again reviewed plan of care and need for compliance and follow-up with him.
Compliance with medications and follow-up and recommendations has been discussed.
Updated primary service.
Stable from cardiac standpoint for d/c today.
Progress Note - Automatic Head Sawyer
Subjective
Date of Service: March 06, 2024
Pt seen and examined. No complaints. No chest pain or shortness of breath.
Objective
Labs:
03/05/24 05:52
03/06/24 05:45
Labs
Hgb 14.4 g/dL (13.0-18.0) 03/05/24 05:52
Hct 41.5 % (39.0-52.0) 03/05/24 05:52
Plt Count 166 10^3/uL (130-400) 03/05/24 05:52
Sodium 134 mmol/L (135-145) L 03/06/24 05:45
Potassium 3.5 mmol/L (3.5-5.1) 03/06/24 05:45
BUN 17 mg/dl (9-20) 03/06/24 05:45
Creatinine 0.6 mg/dL (0.7-1.3) L 03/06/24 05:45
Glucose 126 mg/dl (70-99) H 03/06/24 05:45
Troponins
03/03/24 03/03/24 03/03/24
11:50 18:34 23:30
Troponin I 0.041 H* 0.042 H* 0.051 H*
03/04/24
05:19
Troponin I 0.054 H*
Vital Signs and I&O:
Vital Signs
Temp Pulse Resp BP Pulse Ox
97.6 F 69 17 92/52 95
03/06/24 07:00 03/06/24 07:00 03/06/24 07:00 03/06/24 07:00 03/06/24 07:00
Vital Signs
Temp Pulse Resp BP Pulse Ox
97.6 F 69 17 92/52 95
03/06/24 07:00 03/06/24 07:00 03/06/24 07:00 03/06/24 07:00 03/06/24 07:00
Intake & Output
03/04/24 03/05/24 03/06/24 03/07/24
06:59 06:59 06:59 06:59
Intake Total 1050 / 1050 1200 / 1200 960 / 960
Output Total 1800 / 1800 900 / 900
Balance 1050 / 1050 -600 / -600 60 / 60
Physical Exam
Physical Exam
General: No acute distress, Awake and alert
Neck: Negative JVD
Heart: Irregularly irregular, Negative S3 positive S1/S2, Negative S4, No murmur
Lungs: CTA b/l, negative wheezes/rales/rhonchi
Abd: Positive BS, NT/ND, neg rebound/rigidity/guarding
Ext: Negative cyanosis/clubbing/edema
Neuro: nonfocal
[2024-03-06] MEDS: KCL 10 MEQ PO (08:44)
[2024-03-06] MEDS: LASIX IV ×2 (08:44→08:54)
[2024-03-06] MEDS: ENTRESTO 24 MG/26 MG 1 TAB PO (08:44)
[2024-03-06] MEDS: LASIX 40 MG PO (10:52)
--- NOTE | 2024-03-06 11:11 | W.PN.HOSP.TC ---
Addendum entered and electronically signed by Leandro Merino MD 03/06/24 12:05:
Hyponatremia
Monitor
Time of discharge
38 minutes
Original Note:
Today's Communication/Plan
-
Monitor vital signs and see plan
Continue Entresto
On p.o. Lasix
Possible discharge today
Assessment / Plan
Assessment / Plan
Gen: NAD, Awake and alert, NCAT
Eyes: EOMI, PERRLA, no scleral icterus.
Neck: supple.
CV: irreg/irreg, +S1/S2, no m/r/g.
Resp: faint rales in the bases
Abd: +BS, soft, NT, ND
Skin: No rashes. 1+ B/L LE edema
Neuro: CN 2-12 intact, non-focal.
Psych: Normal mood and affect.
CTA chest:
1. No CTA evidence for an acute pulmonary thromboembolism.
2. Moderate right and small left pleural effusions.
3. Left lower lobe peribronchial thickening and airspace opacities most suspicious for pneumonia. Imaging follow-up to resolution is recommended
4. Cardiomegaly.
Acute on chronic heart failure with reduced ejection fraction:
change lasix to PO
-cont Entresto; CM to find out cost
-no aldactone at this time due to hypotension
-Elevated troponin is due to acute nonischemic myocardial injury
Echo 03/05 with a EF 20 to 25%, which is decreased from previous 30 to 35%
Cardiology following
Hemoptysis:
-CTA chest above
-afebrile, procal < 0.05, unlikely findings on chest imaging related to bacterial pneumonia
-Hb normal
LE swelling
Ankle-brachial indices and toe brachial indices. Mildly enlarged left groin lymph node. Instructed patient to follow-up outpatient to ensure resolution
Other problems:
Chronic lymphedema: cont Tubigrip's
Mild leukocytosis
Permanent atrial fibrillation: continue Xarelto
Moderate mitral regurgitation
Right bundle branch block with left anterior fascicular block
DM2: cont Metformin/SSI/accuchecks
BPH: Continue finasteride
h/o CVA
h/o Cognitive impairment
FULL/Xarelto
Anticipated Discharge: Today
Subjective/Interval History
-
Date of Service: March 06, 2024
denies pain
Objective Data
-
Labs:
Laboratory Results
03/06/24
05:45
Sodium 134 L
Potassium 3.5
Chloride 99
Carbon Dioxide 26
BUN 17
Creatinine 0.6 L
Glucose 126 H
Calcium 8.7
Vital Signs:
Vital Signs
Temp Pulse Resp BP Pulse Ox
97.6 F 69 17 92/52 95
03/06/24 07:00 03/06/24 07:00 03/06/24 07:00 03/06/24 07:00 03/06/24 07:00
I&O
03/05/24 03/06/24 03/07/24
06:59 06:59 06:59
Intake Total 1200 / 1200 960 / 960
Output Total 1800 / 1800 900 / 900
Balance -600 / -600 60 / 60
--- NOTE | 2024-03-06 11:18 | CM ---
Addendum entered by Gila Laoz 03/06/24 12:17:
patient fine with cost of medication. Patient reviewed with roommate, IMM reviewed and signed form placed on chart. Patient plan is to go home with his own car. CM will continue to follow for discharge planning needs.
Plan; home with no needs
Original Note:
Patient cost for ENtresto is 47.00$ per month per [facility].. CM will update patient.
[2024-03-06 11:35] VITALS: BP 99/62; PULSE 74; O2SAT 97
[2024-03-06 11:39] LABS: Glucose - Point of Care 137 mg/dl (70-99)
--- NOTE | 2024-03-06 12:04 | W.DCSUMMARY ---
Discharge Summary
Discharge Data
Date of Admission: 03/03/24
Date of Discharge: 03/06/24
-
Pending Results: No
Hospital Course
79-year-old male with past medical history of lymphedema, pulm atrial fibrillation, right bundle branch block, diabetes mellitus, BPH, CVA, cognitive impairment, CHF came to the hospital with lower extremity swelling consistent with acute on chronic
congestive heart failure exacerbation. Echocardiogram was done which showed reduced EF to 20 to 25% which has been decreased from previous echocardiogram of 30 to 35%. Patient was initially started on IV Lasix which improved his lower extremity
swelling. Upon discharge his Lasix was changed to oral. He had mild hemoptysis on this hospitalization which over time improved. CT scan initially was concerning for possible pneumonia however patient procalcitonin was negative. Since patient
did not had any shortness of breath, he was not treated for any bacterial pneumonia. Over time patient symptoms continue to improve, he was then discharged home with instructions to follow-up with all his physicians outpatient.
Discharge Plan
-
Patient Disposition: Home (Routine Discharge)
Discharge Diagnosis/Procedures: Acute on chronic congestive heart failure reduced ejection fraction
Incidental finding of enlarged left groin lymph node
Diet: As tolerated, 2 Gram Sodium and Diabetic, Carb Controlled
Activity: As tolerated
Driving Restrictions: As prior to admission
Bathing Restrictions: None
Instructions: *DCA Heart Failure Instructions
Referrals:
Sergio Parekh DO [Active] -
Tahir Gallagher DO [Family Provider] - in less than 1 week
Prescriptions:
New
Entresto 24-26 mg Tablet
1 tab PO BID Qty: 60 11RF
furosemide 40 mg Tablet
40 mg PO DAILY Qty: 30 0RF
Continued
metformin 500 MG tablet
500 mg PO HS
Patient Comments:
Takes 1 tab for glucose > 106
methenamine hippurate 1 gram tablet
1 g PO HS
finasteride 5 mg tablet
5 mg PO HS
Xarelto 20 MG tablet
20 mg PO HS
Rx Instructions:
start 04/16
Discharge Orders:
Discharge Patient (As Directed); Ordered 03/06/24
Ordered By: Leandro Merino
Discharge Date and Time
Discharge Date/Time: 03/06/24 14:06
Print Language: OCCITAN
[2024-03-06 13:04] VITALS: BP 108/63
--- NOTE | 2024-03-07 11:02 | W.HF.CON ---
Heart Failure
- LV Function
Left ventricular function study result: LV Ejection fraction </= 35%
Ejection Fraction Percentage: 20-25
- ARNI
Patient already on ARNI: Yes
- ACEI/ARB
Patient already on ACEI/ARB: No
Heart Failure ACEI/ARB Not Indicated: Patient ordered/on ARNI
- Beta Peng
Patient already on Evidence Based Beta Peng: No
Heart Failure Evidence Based Beta Peng: Hypotension
- Mineralocorticord Receptor Antagonist
Patient already on MRA: No
Heart Failure MRA Contraindication: Hypotension
- SGLT-2 Inhibitor
Patient already on SGLT-2 Inhibitor: No
Heart Failure SGLT-2 Inhibitor Contraindication: Patient Refusal (urologic issues)
- Afib Anticoagulation
Patient already on Anticoagulation for Afib: Yes
- NYHA CHF Classification
NYHA CHF Classification Level: Class III - Symptoms w/ min exertion, interferes w/ nml daily activity
- ACC/AHA Stage
ACC/AHA Stage: Stage C: Symptomatic Heart Failure
== END 2024-03-06 14:06 | disposition home or self-care (01) | DRG 291 ==
LOC: 3 WEST ACU 16:17
PROVIDERS: Family Medicine; Physician Assistant; ADMITTING PHYSICIAN Internal Medicine; ATTENDING PHYSICIAN Internal Medicine; CONSULT PHYSICIAN Internal Medicine Cardiovascular Disease; EMERGENCY PHYSICIAN Student in an Organized Health Care Education/Training Program; FAMILY PHYSICIAN Family Medicine
DX: I11.0 Hypertensive heart disease with heart failure (principal); I50.21 Acute systolic (congestive) heart failure; I45.2 Bifascicular block; D69.6 Thrombocytopenia, unspecified; I5A Non-ischemic myocardial injury (non-traumatic); I48.0 Paroxysmal atrial fibrillation; E11.9 Type 2 diabetes mellitus without complications; I87.8 Other specified disorders of veins
CPT/HCPCS: 71275; 80048; 80053; 80061; 82308; 82962; 83036; 83735; 83880; 84145; 84484; 85025; 85027; 87070; 93005; 93306; 93922; 93925; 96374; 97116; 97162; 99285; Q9957; Q9967

== ENCOUNTER → 2024-05-04 08:58 | Outpatient (REF) | payer MEDICARE, OTHER, SELFPAY ==
--- NOTE | 2024-05-01 11:54 | WATCHMAN ---
Documented by User: [email or web address] Pennington 05/08/24 10:42
Watchman
Wathcman Procedure
Referred by:: Iglesia/Joanna
Date of Referral:: 04/27/24
[id number] Score
Age in Years (65=0, 65-74=1, >/=75=2): > or = 75
Sex (Female=+1): Male
Congestive Heart Failure History (Yes=+1): No
Hypertension History (Yes=+1): Yes
Stroke/TIA/Thromboembolism History (Yes=+2): Yes
Vascular Disease History (Yes=+1): No
Diabetes Mellitus (Yes=+1): Yes
Score: 6
Anticoagulation Recommendations: Recommend anticoagulation (as validated in nonvalvular fib)
HASBLED Score
Hypertenstion (uncontrolled >160mmHG systolic): No
Renal disease (dialysis, transplant, Cr >2.26mg/dL or >200umol/L): No
Liver disease (cirrhosis or bilirubin >2x normal w/ AST/ALT/AP >3x normal: No
Stroke history: Yes
Prior major bleeding or predisposition to bleeding: Yes
Labile INR(unsable/high INRs,time in therapeutic range <60%): No
Age >65: Yes
Medication usage predisposing to bleeding(ASA, NSAIDS): No
Alcohol use (>/= 8 drinks/week): No
Score: 3
Risk: Alternatives to anticoagulation should be considered: Patient is at high risk for major bleeding
Electrocardiogram
Interpretation: abnormal
Heart Rate: 43
Rate: bradycardiac
Rhythm: a-fib
QRS Pattern: right bundle branch block
Physician Visits
Deicer Kit Assembler:: Joanna
Date of Visit:: 04/27/24
Primary Scarfing Machine Operator:: Sergio Parekh
Date of Visit:: 09/07/23
PCP:: Tahir Gallagher
Plan
Plan:: 04/27/2024: Consult received from Dr. Marshall. Called and spoke to patient and provided with contact information. Assisted in scheduling CT watchman for 05/04/2024.
05/08/2024: Reviewed Mr. Dan with the heart team in the SDM meeting. The team is agreeable to proceed with the Watchman procedure. Discussed a 31mm device. Will confirm with intraop imaging. Will evaluate thrombus at least one month post CT
scan with FELIPE at least one week prior to watchman.
05/08/2024: Spoke to Mr. Dan and reviewed heart team discussion. FELIPE scheduled for 07/[address] Parekh. Stressed the importance of uninterrupted anticoagulation. Pending evaluation of PRADEEP for clot the watchman procedure is tentatively scheduled
for 07/24. Allowed for and answered all questions.

Documented by User: PRABHAKAR Edwards 05/08/24 07:35
Watchman
[id number] Score
Score: 6
Anticoagulation Recommendations: Recommend anticoagulation (as validated in nonvalvular fib)
HASBLED Score
Score: 3
Risk: Alternatives to anticoagulation should be considered: Patient is at high risk for major bleeding
Plan
Plan:: 04/27/2024: Consult received from Dr. Marshall. Called and spoke to patient and provided with contact information. Assisted in scheduling CT watchman for 05/04/2024.
05/08/2024: Reviewed Mr. Dan with the heart team in the SDM meeting. The team is agreeable to proceed with the Watchman procedure. Discussed a 31mm device. Will confirm with intraop imaging. Will evaluate thrombus at least one month post CT
scan with FELIPE at least one week prior to watchman.
== END ==
LOC: RAD 08:58
PROVIDERS: ATTENDING PHYSICIAN Internal Medicine Interventional Cardiology; FAMILY PHYSICIAN Family Medicine
DX: I48.0 Paroxysmal atrial fibrillation (principal); I45.0 Right fascicular block; R31.0 Gross hematuria
CPT/HCPCS: 75572; Q9967

== ENCOUNTER → 2024-06-04 07:19 | Outpatient (REF) | payer MEDICARE, OTHER, SELFPAY | LOC: HWRCS 07:19 | PROVIDERS: ATTENDING PHYSICIAN Nuclear Medicine Nuclear Cardiology; FAMILY PHYSICIAN Family Medicine | DX: I48.19 Other persistent atrial fibrillation (principal) | CPT/HCPCS: 93306 ==

== ENCOUNTER 2024-07-03 07:00 | Day surgery (SDC) | payer MEDICARE, OTHER, SELFPAY | END 2024-07-03 10:00 | disposition home or self-care (01) | LOC: CATH 07:00 | PROVIDERS: ATTENDING PHYSICIAN Nuclear Medicine Nuclear Cardiology; FAMILY PHYSICIAN Family Medicine | DX: I48.19 Other persistent atrial fibrillation (principal); I08.1 Rheumatic disorders of both mitral and tricuspid valves; I11.0 Hypertensive heart disease with heart failure; I42.8 Other cardiomyopathies; E78.5 Hyperlipidemia, unspecified; E11.9 Type 2 diabetes mellitus without complications; G47.33 Obstructive sleep apnea (adult) (pediatric); I87.2 Venous insufficiency (chronic) (peripheral); N40.0 Benign prostatic hyperplasia without lower urinary tract symptoms; Z86.73 Personal history of transient ischemic attack (TIA), and cerebral infarction without residual deficits; Z79.01 Long term (current) use of anticoagulants | CPT/HCPCS: 93312; 93320; 93325 ==

== ENCOUNTER 2024-07-24 05:54 | Inpatient (IN) | payer MEDICARE, OTHER, SELFPAY ==
[2024-06-27 08:55] LABS: % Basophils 1.3 % (0-2); % Eosinophils 1.8 % (0-6); % Immature Granulocytes 0.2 % (0-0.5); % Lymphocytes 25.2 % (20.5-51.1); % Monocytes 9.3 % (1.7-9.3); % Neutrophils 62.2 % (42.2-75.2); Absolute Basophils 0.1 10^3/uL (0-0.2); Absolute Eosinophils 0.1 10^3/uL (0-0.7); Absolute Lymphocytes 1.4 10^3/uL (1.2-3.4); Absolute Monocytes 0.5 10^3/uL (0.1-0.6); Absolute Neutrophils 3.4 10^3/uL (1.4-6.5); Hematocrit 39.5 % (39.0-52.0); Hemoglobin 13.8 g/dL (13.0-18.0); Mean Corp Hgb Conc. 34.9 g/dL (33.0-37.0); Mean Corpuscular Hgb 32.8 pg (27.0-31.0); Mean Corpuscular Volume 93.8 fL (80.0-94.0); Mean Platelet Volume 11.9 fL (7.4-10.4); Nucleated Red Blood Cells % 0 % (-); Platelet Count 162 10^3/uL (130-400); Red Blood Cell Count 4.21 10^6/uL (4.70-6.10); Red Cell Dist. Width 13.9 % (11.5-14.5); White Blood Cell Count 5.5 10^3/uL (4.8-10.8)
[2024-06-27 09:04] LABS: PT 31.6 Sec (11.4-14.6)
[2024-06-27 09:21] LABS: ALT (SGPT) 16 U/L (0-50); AST (SGOT) 24 U/L (17-59); Albumin 4.2 g/dl (3.5-5.0); Alkaline Phosphatase 53 U/L (38-126); Blood Urea Nitrogen 20 mg/dl (9-20); Calcium 9.1 mg/dl (8.4-10.2); Carbon Dioxide 26 mmol/L (22-30); Chloride 103 mmol/L (98-107); Glucose 90 mg/dl (70-99); Potassium 3.9 mmol/L (3.5-5.1); Sodium 142 mmol/L (135-145); Total Bilirubin 1.4 mg/dl (0.2-1.3); Total Protein 6.8 g/dl (6.3-8.2); eGFR > 60.00
[2024-06-27 10:36] VITALS: BMI 26.3
[2024-07-24] VITALS (19 sets, daily range): BP systolic 81–107; BP diastolic 39–67; BMI 23.2
[2024-07-24 08:49] LABS: ACT-LR - POC 329 Seconds (116-155)
--- NOTE | 2024-07-24 09:04 | WATCHMAN.MD ---
Watchman Implant
-
Watchman PRADEEP occlusion device implantation:
Mr. Dan is a 79 years old gentleman with persistent atrial fibrillation with HFrEF (EF 35%)� and Stephens class III with hx of CVA. �His LLS1GE2-CMOd score of 7 secondary to age, hypertension, CHF, CVA, and diabetes, and his HAS-BLED score is
5 secondary to hypertension, stroke, history of bleeding, age, and anticoagulant. Given his hematuria and fall risk, he is advised discontinuation of anticoagulation therapy and Watchman implantation.
Date of Procedure:
07/24/24
Indications:
Recurrent bleeding with anticoagulation therapy for stroke prevention
Pre-Operative Diagnosis:
Atrial fibrillation with high risk of bleeding
Post-Operative Diagnosis:
Atrial fibrillation with high risk of bleeding
Procedure Performed:
Left atrial appendage occlusion with Watchman implantation (27 mm Watchman FLX Pro left atrial appendage closure device)
Performing Physicians:
FELIPE: Bjorn Peralta M.D.
Transseptal paper cup handle machine operator: Marcia Marshall M.D.
Implanter: Lisbeth Hoffman M.D.
Anesthesia:
See anesthesia records
Detailed Description of the Procedure:
Written informed consent was obtained from the patient after a full explanation of the risks and benefits of the procedure including the risks of sedation and anesthesia.
The patient was brought to the electrophysiology laboratory in stable condition in fasting state. Continuous electrocardiographic and hemodynamic monitoring was initiated.
The initial rhythm was atrial fibrillation.
The procedure site was meticulously prepared with surgical scrub and allowed to dry with no pooling. Sterile draping was applied to cover the procedure site. The image intensifier was draped with sterile bag and positioned over the patient. After
infusion of local anesthetic, vascular access was obtained under ultrasound guidance and sheaths were placed over guide wire as detailed below.
Sheath and Catheter Placement:
Sheaths:
��������������� Direx Steerable Watchman delivery sheath
��������������� Watchman catheter
Trans-septal Puncture:
Trans-septal Puncture:
Heparin was initiated and infused to maintain appropriate ACT. A pigtail guidewire was advanced through the 8-Iranian sheath in the right femoral vein into the superior vena cava under fluoroscopic and ICE guidance. The 9-Iranian sheath was exchanged
for a Watchman sheath which was advanced into the superior vena cava. A transseptal RF pigtail via [employer] system was utilized to perform the trans-septal puncture. The apparatus was withdrawn until it was in contact with the fossa ovalis. The
position was adjusted based on fluoroscopy and ultrasound images from FELIPE. Under fluoroscopic, hemodynamic and FELIPE ultrasound guidance, left atrium was cannulated by applying RF energy. Once atrial septum was cannulated, the pigtail wire was
advanced through the needle into the left atrium. The guide wire was advanced into the left superior pulmonary vein. Both the sheath and the dilator was advanced into the left atrium. The dilator was withdrawn. Blood was aspirated from the sheath
and arterial blood confirmed. The sheath was flushed. Saline injection noted into the left atrium on FELIPE. Left atrial pressure was measured. A curved pig tail was advanced over the guide wire into the left atrium and the wire was removed.
Left atrial appendage atriography:
The pigtail was advanced into the PRADEEP and was confirmed on fluoroscopy and FELIPE. The contrast was injected and the PRADEEP shape was recorded in REA /Caudal view (20/20 degrees). The size of the PRADEEP was again checked and confirmed reviewing the FELIPE and
the fluoroscopy along with previously obtained CT scan images.
Watchman Deployment:
The Watchman delivery sheath was advanced into the PRADEEP over the pigtail till the right marker was at the location of the orifice line marked on the screen. The pigtail was removed and the Watchman delivery system was advanced through the sheath into
the PRADEEP till it was aligned with the outer sheath marker inside the PRADEEP. The watchman sheath was clicked with the outer sheath. Once acceptable location achieved, the outer sheath was pulled back keeping the device steady at the PRADEEP location till a
ball of the device was formed under fluoroscopic guidance. The whole system was advanced further into the PRADEEP till adequate depth is achieved into the PRADEEP using flexion and extention of the Direx sheath.� The PRADEEP occluder was deployed and expanded
adequately anchoring to the PRADEEP. The device was kept anchored with stable pressure to that location for 10 seconds.
The FELIPE image confirmed adequate expansion. The tug test was done that showed the device is anchored well and is not able to come out. The compression was 18% and 27% on the two sides. There was no significant leak noted on the Doppler via FELIPE. A
contrast was injected showing adequate location of the device at the mouth of the PRADEEP and no leak demonstrated.�
The device was deployed by unscrewing the Watchman device and releasing from the connecting wire. The wire was pulled back into the sheath and the sheath was pulled out of the LA.
Implanted device:
WATCHMAN FLX Pro � 27mm
Procedure End
FELIPE study was done again that showed no epicardial accumulation that was unchanged from earlier. A repeated images showed no change in the pericardial space. No complications noted.
Following the completion of the deployment, catheters were removed. Protamine 35 mg was given at the end of the procedure and ACT was checked repeatedly. The sheath was removed and hemostasis achieved with VASCADE and manual compression after
acceptable ACT is achieved.
Left atrial Pressure:
Mean LA pressure was 19mmHg
Estimated Blood loss:
10 cc
Specimens Removed:
None.
Implants / Devices:
None
Urine output:
None
Packs / Drains/ Tubes:
None
Instrument / Sponge Count Correct:
Yes
Complications of the Procedure:
None
Condition of Patient at Time of Transfer:
Hemodynamically stable with no neurological or vascular compromise.
Summary:
Successful implantation of the left atrial occlusion device (WATCHMAN FLX Pro� 27mm)
Post procedure Plan for anticoagulation:
Continue Xarelto 20 mg QD for 90 days.
In 3 months, will plan to discontinue Xarelto and continue ASA 81 mg indefinitely.
--- NOTE | 2024-07-24 10:55 | WATCHMAN.MD ---
Addendum entered and electronically signed by Marcia Marshall MD 07/24/24 11:10:
Correction Addendum:
PROCEDURES:
1. Left atrial appendage occlusion device using 27 mm WATCHMAN FLX device
2. Ultrasound-guided right common femoral venous access
Marcia Marshall MD, [facility], [facility]
Original Note:
Watchman Implant
-
ELECTROPHYSIOLOGY/INTERVENTIONAL PROCEDURE REPORT
Date of Procedure: July 24, 2024
Referring: Sergio Parekh
Assisting Physician: Lisbeth Hoffman
PROCEDURES:
1. Left atrial appendage occlusion device using 27 mm WATCHMAN FLX device
2. Intracardiac echocardiography
3. Ultrasound-guided right common femoral venous access
INDICATION: Atrial fibrillation warranting long-term anticoagulation with contraindication for long-term anticoagulation due to bleeding risk.
ACCESS: Right common femoral vein, 16Fr sheath, under US guidance using micropunture kit.
HEMODYNAMICS : (mmHg)
LA Pressure: 20
PROCEDURE REPORT:
After informed consent and patient safety 'Timeout' the patient was intubated and sedated by the anesthesiology service. Under ultrasound guidance, the right femoral vein was accessed by Dr. Marcia Marshall for transseptal puncture. Concomitant
transesophageal echocardiogram was performed by Dr. Red Peralta
Baseline intracardiac ultrasound demonstrated no pericardial effusion and baseline FELIPE images revealed a trace pericardial effusion.
After ruling out a left atrial appendage thrombus, the patient was heparinized for an ACT between 350-400 seconds and under FELIPE and intracardiac ultrasound guidance transseptal puncture was performed by Dr. Marcia Marshall using the [place] RF
trans-septal system through the steerable watchman access sheath in a mid position on the inferior-superior axis and a mid position on the anterior-posterior axis. Left atrial pressure was 20 millimeters mercury.
Once transseptal puncture was performed over the [place] RF wire parked in the body of the left atrium, the steerable watchman access sheath was advanced over this. A 5 Nepali pigtail catheter was placed into the left atrial appendage and an
appendage gram was performed using intravenous contrast dye demonstrating a cauliflower type anatomy that was suitable likely for a 27 mm WATCHMAN FLX device.
After appropriately prepping the device, Dr. Lisbeth Hoffman successfully deployed a 27 mm WATCHMAN FLX device. Device showed excellent positioning with no leaks post device deployment. 18 to 29 % compression was noted in the device after deployment.
A 'tug-test' was performed demonstrating stability of the device. Given PASS criteria were met, the device was then released successfully by Dr. Lisbeth Hoffman
Post procedure, FELIPE imaging demonstrated no new or worse pericardial effusion. Sheaths and catheters were removed from the left atrium and heparin was reversed using protamine. Catheters removed from the femoral vein and access site was closed using
a Vascade closure device. The patient tolerated the procedure well.
RADIATION SUMMARY: Fluoro Time (min): 7.3, Dose (mGy): 128.25, DAP (Gy.cm2) : 15.2
Closure Device: Vascade Closure Device
CONCLUSIONS
1. Successful deployment of 27 mm WATCHMAN FLX device under FELIPE and ICE guidance.
RECOMMENDATIONS
1. Plan for daily Xarelto for the next 3 months.
2. 3-month FELIPE post procedure to assess stability of device and rule out any sheri-device leaks.
Marcia Marshall MD, FAC, [facility]
--- NOTE | 2024-07-24 11:07 | PTCARENOTE ---
pt now having hr 45-47 with bp 82/51. notified Sunshine Sheridan np. pt doing well at hob 30 degrees ,ate and drinking fluids and talking w family .no complaints from pt .
--- NOTE | 2024-07-24 11:41 | W.PN.UPDATE ---
Update Note
Progress Note Update
79 yo WM s/p Watchman device 27mm (same day). He denies cp, sob, LH/dizzy, EKG Afib SVR HR 40-50's, R fem site c/d/i no HT, soft. He will resume OAC Xarelto tonight. Activity restrictions reviewed. He will have f/u FELIPE in 3 mo. He is for d/c home
after 1pm if groin stable and voiding.
--- NOTE | 2024-07-24 12:06 | PTCARENOTE ---
while urinating in bottle pt bled from groin. dressing removed ,pressure held for 10 min and redressed. notified lindsey march np . will continue to monitor .
--- NOTE | 2024-07-24 14:38 | W.DS.TRANS ---
DC Summary - Company Controller
-
Discharge Instructions:
Discharge Diagnosis/Procedures Atrial fibrillation post Watchman device
Diet Low Cholesterol,2 Gram Sodium
Driving Restrictions No driving for 24 hours
Others Tests Follow up FELIPE has been scheduled for you at
[facility] on 10/23/2024. You will
receive instructions in the mail and a call the
night before with arrival time.
Instructions:
Stand-Alone Forms: DC Instructions- Cath/EP Lab
Changes to Home Medications: No
Discharge Medications:
DC Medications w/original date entered in [employer]
finasteride 5 mg tablet 5 mg PO HS BPH 03/03/24
methenamine hippurate 1 gram tablet 1 g PO HS Urinary tract infection 03/03/24
rivaroxaban 20 mg tablet (Xarelto) 20 mg PO HS Blood Clot Prevention/Tx 03/03/24
furosemide 40 mg tablet 40 mg PO DAILY #30 tabs 03/06/24
sacubitril 24 mg-valsartan 26 mg tablet (Entresto) 1 tab PO BID Heart Failure #60 tabs 03/06/24
Prevagen 1 tab PO DAILY 07/03/24
Home Medication Changes
Pending Results: No
== END 2024-07-24 13:50 | disposition home or self-care (01) | DRG 274 ==
LOC: CATH-IN 05:54
PROVIDERS: Internal Medicine Cardiovascular Disease; Student in an Organized Health Care Education/Training Program; ADMITTING PHYSICIAN Internal Medicine Interventional Cardiology; FAMILY PHYSICIAN Family Medicine
PROC: 02L73DK Occlusion of Left Atrial Appendage with Intraluminal Device, Percutaneous Approach (ICD-10-PCS; 2024-07-24)
PROC: B24BZZ4 Ultrasonography of Heart with Aorta, Transesophageal (ICD-10-PCS; 2024-07-24)
DX: I48.19 Other persistent atrial fibrillation (principal); Z00.6 Encounter for examination for normal comparison and control in clinical research program; I50.22 Chronic systolic (congestive) heart failure; I42.8 Other cardiomyopathies; I11.0 Hypertensive heart disease with heart failure; I95.1 Orthostatic hypotension; E11.9 Type 2 diabetes mellitus without complications; R31.9 Hematuria, unspecified; E78.5 Hyperlipidemia, unspecified; I87.2 Venous insufficiency (chronic) (peripheral); H40.9 Unspecified glaucoma; G47.33 Obstructive sleep apnea (adult) (pediatric); Z91.81 History of falling; Z79.01 Long term (current) use of anticoagulants; Z86.73 Personal history of transient ischemic attack (TIA), and cerebral infarction without residual deficits; Z86.14 Personal history of Methicillin resistant Staphylococcus aureus infection
CPT/HCPCS: 33340; 76937; 80053; 85025; 85347; 85610; 86850; 86900; 86901; 87070; 93005; 93355; C1892; C1894; Q9967

== ENCOUNTER → 2024-10-19 06:53 | Day surgery (SDC) | payer MEDICARE, OTHER, SELFPAY ==
[2024-10-19 07:55] LABS: Glucose - Point of Care 87 mg/dl (70-99)
== END ==
LOC: CATH 06:53
PROVIDERS: ATTENDING PHYSICIAN Internal Medicine Cardiovascular Disease; FAMILY PHYSICIAN Family Medicine; OTHER PHYSICIAN Nuclear Medicine Nuclear Cardiology
DX: Z45.09 Encounter for adjustment and management of other cardiac device (principal); I08.3 Combined rheumatic disorders of mitral, aortic and tricuspid valves; I48.19 Other persistent atrial fibrillation; I42.8 Other cardiomyopathies; I11.0 Hypertensive heart disease with heart failure; I50.22 Chronic systolic (congestive) heart failure; I10 Essential (primary) hypertension; E78.5 Hyperlipidemia, unspecified; Z86.73 Personal history of transient ischemic attack (TIA), and cerebral infarction without residual deficits; E11.8 Type 2 diabetes mellitus with unspecified complications; Z79.01 Long term (current) use of anticoagulants
CPT/HCPCS: 93312; 93320; 93325; 82962

== ENCOUNTER 2025-02-14 05:36 | Emergency (ER) | payer MEDICARE, OTHER, SELFPAY ==
[2025-02-14 05:38] VITALS: BP 128/64
[2025-02-14 06:22] LABS: Urine Albumin 2+ (Neg - Trace); Urine Bilirubin Negative (Negative); Urine Character Clear (Clear); Urine Color Yellow; Urine Glucose Negative (Negative); Urine Ketone Negative (Negative); Urine Leukocyte 3+ (Negative); Urine Nitrite Negative (Negative); Urine Occult Blood 4+ (Negative); Urine Urobilinogen Negative (Neg - 1+)
[2025-02-14 06:55] LABS: Urine Bacteria Moderate (Negative); Urine Red Blood Cell 0-2 /HPF (0-2); Urine White Cell >100 /HPF (0-5)
--- NOTE | 2025-02-14 07:25 | ED.GENMED ---
History of Present Illness
<Noam Boudreaux PA-C - Last Filed: 02/15/25 10:03>
General
Chief Complaint: Male Genito-Urinary Symptoms
Source: patient
Time Seen by Provider: 02/14/25 07:04
History of Present Illness
History of Present Illness:
Note:
CHIEF COMPLAINT(S)
Increased urinary frequency.
HISTORY OF PRESENT ILLNESS
The patient is a 80-year-old male with a history of diabetes mellitus, currently not on pharmacotherapy, presenting with increased urinary frequency. Symptoms began two days ago. He denies fever, hematuria, or dysuria. The patient reports a previous
urinary tract infection approximately six to seven months ago and experiences these infections approximately once a year or every two years. He is able to distinguish an infection due to frequent urination. No back pain is noted, and he reports he
attempts to fully void his bladder. No sensation of abdominal distension is reported.
ADDITIONAL HISTORY OBTAINED FROM SOURCES OTHER THAN THE PATIENT
ALLERGIES
Penicillin (noted reaction not specified, historical allergy since childhood).
CHRONIC MEDICAL CONDITIONS SIGNIFICANTLY AFFECTING CARE
Chronic conditions affecting care: Diabetes mellitus (not currently medicated).
REVIEW OF SYSTEMS
- Genitourinary: Increased urinary frequency, denies dysuria or hematuria.
- General: No fever reported.
PHYSICAL EXAM
Nursing notes reviewed and vital signs reviewed.
PLAN
1. Perform bladder scan to assess for post-void residual volume and determine if urinary retention is contributing to symptoms.
2. Initiate appropriate antibiotic therapy based on urinalysis findings suggesting urinary tract infection.
DIFFERENTIAL DIAGNOSIS
The Differential Diagnosis includes, in no particular order and is not limited to:
1. Lower urinary tract infection
2. Benign prostatic hyperplasia
3. Bladder outlet obstruction
4. Overactive bladder
Past History
<Noam Boudreaux PA-C - Last Filed: 02/15/25 10:03>
Past History
ED Past Medical History: Arrthythmia, NIDDM, Psychiatric, Other (BPH s/P TURP, hypospadias, inguinal hernia repair and umbilical hernia repair cholecystectomy, septoplasty, tonsillectomy, paroxysmal atrial fib) and Other (sleep apnea)
ED Past Surgical History: Other (aug 05 hernia repair, november 03 umbilical hernia, october 31 choley, 89 septoplasty ear surgery as a 7yr old, TONSILS AGE 22)
Social History
Tobacco: Non-smoker
Alcohol: None
Drug: None
Personal: Single
Living: other
Family History
Family History: Other (Father with prostate cancer)
Phy Exam
<Noam Boudreaux PA-C - Last Filed: 02/15/25 10:03>
Physical Exam
Physical Exam:
General: Well-appearing male no acute respiratory distress
HEENT: Normocephalic atraumatic
Heart: Regular rate and rhythm
Lungs: Clear no wheeze
Abdomen soft nondistended nontender
Course
<Noam Boudreaux PA-C - Last Filed: 02/15/25 10:03>
Orders/Labs/Results
Orders:
Orders
02/14/25 06:12
Urine Microscopic Reflex Cult Urgent
Urine Reflex Culture from UA [Urinalysis Reflex To Culture] Urgent
Date Specimen was Collected: 02/14/25
Time Specimen was Collected: 06:05
Urine Culture Urgent
SHIRLEY Source: U
Specimen Description:
Date Specimen was Collected: 02/14/25
Time Specimen was Collected: 06:05
02/14/25 07:24
Bladder Scan- Treatment ONCE
Abnormal Lab Results
02/14/25
06:12
Ur Occult Blood Reflex 4+ A
(Negative)
Leukocyte Esterase Rfl 3+ A
(Negative)
Urine WBC (Reflex) >100 A /HPF
(0-5)
Urine Bacteria (Reflex) Moderate A
(Negative)
Urine Albumin (Reflex) 2+ A
(Neg - Trace)
Vital Signs
Initial and Last Documented VS:
Initial Vital Signs
Temp Pulse Resp BP Pulse Ox
98.2 F 48 22 128/64 98
02/14/25 05:38 02/14/25 05:38 02/14/25 05:38 02/14/25 05:38 02/14/25 05:38
Last Documented Vital Signs
Temp Pulse Resp BP Pulse Ox
98.2 F 51 16 123/61 97
02/14/25 05:38 02/14/25 08:55 02/14/25 08:55 02/14/25 08:55 02/14/25 08:55
<Kingston Curiel Jr., PA-C - Last Filed: 02/17/25 08:51>
Orders/Labs/Results
Orders:
Orders
02/14/25 06:12
Urine Microscopic Reflex Cult Urgent
Urine Reflex Culture from UA [Urinalysis Reflex To Culture] Urgent
Date Specimen was Collected: 02/14/25
Time Specimen was Collected: 06:05
Urine Culture Urgent
SHIRLEY Source: U
Specimen Description:
Date Specimen was Collected: 02/14/25
Time Specimen was Collected: 06:05
02/14/25 07:24
Bladder Scan- Treatment ONCE
Abnormal Lab Results
02/14/25
06:12
Ur Occult Blood Reflex 4+ A
(Negative)
Leukocyte Esterase Rfl 3+ A
(Negative)
Urine WBC (Reflex) >100 A /HPF
(0-5)
Urine Bacteria (Reflex) Moderate A
(Negative)
Urine Albumin (Reflex) 2+ A
(Neg - Trace)
Vital Signs
Initial and Last Documented VS:
Initial Vital Signs
Temp Pulse Resp BP Pulse Ox
98.2 F 48 22 128/64 98
02/14/25 05:38 02/14/25 05:38 02/14/25 05:38 02/14/25 05:38 02/14/25 05:38
Last Documented Vital Signs
Temp Pulse Resp BP Pulse Ox
98.2 F 51 16 123/61 97
02/14/25 05:38 02/14/25 08:55 02/14/25 08:55 02/14/25 08:55 02/14/25 08:55
<Noam Boudreaux PA-C - Last Filed: 02/15/25 10:03>
*Pulse Oximetry
SaO2: 98
Oxygen Mode of Delivery: Room air
*Critical Care Note
Total Time (30-74mins, 75-104mins- exclusive of procedures): Not Applicable
<Noam Boudreaux PA-C - Last Filed: 02/15/25 10:03>
Update Note
Update Note:
Bladder scan with minimal urine. Urinalysis consistent with UTI. Will start on Omnicef. Stable for discharge
<Kingston Curiel Jr., PA-C - Last Filed: 02/17/25 08:51>
Update Note
Update Note:
Bladder scan with minimal urine. Urinalysis consistent with UTI. Will start on Omnicef. Stable for discharge
02/17/2025 0851: Patient contacted about the culture result and switched to Bactrim.
ED Attending Note
<Noam Boudreaux PA-C - Last Filed: 02/15/25 10:03>
-
Portions of this chart may have been created with voice recognition software.� Occasional wrong word or��sound alike� substitutions may have occurred due to the inherent limitations of voice recognition software.
Discharge Plan
Departure
Patient Disposition: Home (Routine Discharge)
Date of Disposition: 02/14/25
Time of Disposition: 08:47
Patient with high blood pressure during this ER visit?: No
Discharge Problem:
Acute UTI
Instructions: Urinary tract infections in adults
Prescriptions:
New
cefdinir 300 mg capsule
300 mg PO BID Qty: 14 0RF
sulfamethoxazole-trimethoprim [Bactrim DS] 800-160 mg tablet
1 tab PO BID 7 Days Qty: 14 0RF
No Action
methenamine hippurate 1 gram tablet
1 g PO HS
finasteride 5 mg tablet
5 mg PO HS
Xarelto 20 MG tablet
20 mg PO HS
sacubitril-valsartan [Entresto] 24-26 mg Tablet
1 tab PO BID Qty: 60 11RF
furosemide 40 mg Tablet
40 mg PO DAILY Qty: 30 0RF
Prevagen
1 tab PO DAILY
Rx Instructions:
Memory supplement
Referrals:
Tahir Gallagher, DO [Family Provider, Family Practice]
Activity Restrictions/Additional Instructions:
Drink plenty of fluids. Use antibiotic as directed. Return here for worsening symptoms including fever or other concerning findings
Interventions
Interventions:
*Risk Screen - Suicide Last Done: 02/14/25 05:38
*General Assessment Last Done: 02/14/25 06:11
*Neglect/Abuse Screening Last Done: 02/14/25 05:38
*ED- Fall Risk Assessment Last Done: 02/14/25 06:11
*ED COVID-19 Vaccine History Last Done: 02/14/25 06:11
*Nursing Disposition Last Done: 02/14/25 08:55
ED-Male Genitourinary Assessment Last Done: 02/14/25 06:18
Discharge Date and Time
Discharge Date/Time: 02/14/25 08:55
Print Language: GERMAN
[2025-02-14 08:55] VITALS: BP 123/61
== END 2025-02-14 08:55 | disposition home or self-care (01) ==
LOC: EMR 05:36
PROVIDERS: EMERGENCY PHYSICIAN Emergency Medicine; FAMILY PHYSICIAN Family Medicine
DX: N39.0 Urinary tract infection, site not specified (principal); E11.9 Type 2 diabetes mellitus without complications; G47.30 Sleep apnea, unspecified; I48.0 Paroxysmal atrial fibrillation; N40.1 Benign prostatic hyperplasia with lower urinary tract symptoms; Z87.440 Personal history of urinary (tract) infections; Z88.0 Allergy status to penicillin; Z90.49 Acquired absence of other specified parts of digestive tract; Z90.79 Acquired absence of other genital organ(s)
CPT/HCPCS: 99283; 81003; 81015; 87077; 87086; 87186